=== PATIENT | male | born 1955 | race Caucasian/White ===

== ENCOUNTER 2022-11-29 16:42 | Inpatient (IN) | payer OTHER, SELFPAY ==
--- NOTE | ~2022-11-29 | CT_ITS ---
EXAMINATION: CT HEAD WITHOUT CONTRAST CLINICAL INFORMATION: Altered mental status COMPARISON: None available. TECHNIQUE: Contiguous axial imaging was performed from the skull base to vertex without intravenous administration of contrast. This CT examination was performed using dose optimization techniques as appropriate, variously including the following: *Automated exposure control *Adjustment of mA and/or kV according to patient size (this includes techniques or standardized protocols for targeted exams where dose is matched to indication/reason for exam; i.e. extremities or head) *Use of iterative reconstruction technique Dose: 819 mGy-cm FINDINGS: There is focal hypoattenuation in the left posterior frontal lobe laterally with underlying white matter hypoattenuation and no appreciable focal mass effect swelling, most consistent with and encephalomalacia from a prior infarct. There is involvement of the insular cortex. There is no evidence of acute intracranial hemorrhage. No abnormal mass-effect or midline shift is seen. Clement to white matter differentiation is well preserved. No extra axial fluid collections. The ventricles are normal in size and configuration. Multiple areas of hypoattenuation in the subcortical and periventricular white matter are most consistent with chronic microangiopathic changes. Multiple small lacunar infarcts are evident within the basal ganglia, most notably in the region of the right caudate. Leftward deviation of the nasal septum. Dental caries are partially imaged. No acute osseous findings. The sinuses and mastoid air cells are clear. CT/CT head/brain wo IV con IMPRESSION: Focal encephalomalacia in the left frontal and insular cortices, most consistent with a prior infarct. A superimposed acute infarct in this region cannot excluded. Consider correlation with MRI of the brain for further assessment if clinically indicated.
--- NOTE | ~2022-11-29 | CT_ITS ---
EXAMINATION: CT ANGIOGRAM OF THE CHEST WITH AND WITHOUT CONTRAST (CT PULMONARY ANGIOGRAM FOR PE) CLINICAL INFORMATION: Reason for Exam sob COMPARISON: None available. TECHNIQUE: Prior to contrast administration, noncontrast localization images were obtained. Subsequently, multidetector volumetric imaging was performed from the thoracic inlet to below the diaphragms following the administration of 80 mL Omnipaque 350 intravenous contrast. No contrast reaction reported Sagittal, coronal, and MIP oblique sagittal reformatted images were obtained on the CT workstation, uploaded to PACS, and reviewed. This CT examination was performed using dose optimization techniques as appropriate, variously including the following: *Automated exposure control *Adjustment of mA and/or kV according to patient size (this includes techniques or standardized protocols for targeted exams where dose is matched to indication/reason for exam; i.e. extremities or head) *Use of iterative reconstruction technique Total exam dose-length product 528 mGy-cm FINDINGS: QUALITY OF STUDY/CONTRAST BOLUS: Satisfactory. PULMONARY ARTERIES: No pulmonary emboli. THORACIC AORTA: No aneurysm. LUNG: No focal consolidation, nodules or masses. PLEURA: No pleural effusion or pneumothorax. MEDIASTINUM: Normal heart size. No pericardial effusion. No hilar or mediastinal lymphadenopathy. No evidence of septal bowing or right heart strain. CORONARY ARTERY CALCIFICATION: Mild CHEST WALL/AXILLA: No axillary or internal mammary lymphadenopathy. OSSEOUS STRUCTURES: No acute or suspicious osseous abnormality. Degenerative changes UPPER ABDOMEN: See abdominal and pelvic CT report from the same day. No reflux of contrast into the hepatic veins to suggest elevated right heart pressures. CT/CT angio chest PE protocol IMPRESSION: No evidence of pulmonary embolism. VTE: negative
--- NOTE | ~2022-11-29 | CT_ITS ---
EXAMINATION: CT ABDOMEN AND PELVIS WITH CONTRAST CLINICAL INFORMATION: Diffuse abdominal pain and confusion COMPARISON: None available. TECHNIQUE: Multidetector volumetric images were obtained from the superior aspect of the liver through the pubic symphysis following administration 85 mL of Omnipaque 350 intravenous contrast. Sagittal and coronal reformatted images were obtained on the technologist's workstation. Oral contrast: No This CT examination was performed using dose optimization techniques as appropriate, variously including the following: *Automated exposure control *Adjustment of mA and/or kV according to patient size (this includes techniques or standardized protocols for targeted exams where dose is matched to indication/reason for exam; i.e. extremities or head) *Use of iterative reconstruction technique DLP: 1181 mGy-cm FINDINGS: LUNG BASES: The visualized lung bases are unremarkable. LIVER, GALLBLADDER, AND BILIARY TREE: There are calcifications in the liver. The liver is otherwise normal. The gallbladder is upper normal in size. No biliary duct dilatation. PANCREAS: Unremarkable. SPLEEN: There are calcifications in the spleen. Spleen is normal in size. ADRENAL GLANDS: Unremarkable. KIDNEYS AND URETERS: There is mild bilateral hydronephrosis. There is mild bilateral ureteral dilatation. There is a heterogeneous low-attenuation or decreased enhancement seen in the lower pole of the right kidney. There is question of a tiny amount of perinephric fluid. Appearance is questionable for pyelonephritis. Differential would include an infarct. There is a 1 cm cortical cyst in the lower pole of the right kidney. There is question of a left lower pole peripelvic cyst. No imaging follow-up recommended. BLADDER: There is a Watkins catheter in the bladder. The bladder is empty. The bladder wall appears diffusely thickened. GASTROINTESTINAL TRACT: Diverticulosis of the colon. No evidence of diverticulitis. The small and large bowel are otherwise unremarkable. The appendix is unremarkable. ABDOMINAL WALL: No significant hernia is appreciated. LYMPH NODES: Small retroperitoneal lymph nodes. No enlarged lymph nodes. VASCULAR: Unremarkable. PELVIC VISCERA: Unremarkable. OSSEOUS STRUCTURES: Degenerative changes of the spine. CT/CT abdomen pelvis w IV con IMPRESSION: Watkins catheter in the bladder. The bladder is empty. The bladder wall is diffusely thickened. Mild bilateral hydronephrosis and ureteral dilatation down to the bladder. Heterogeneous decreased enhancement in the lower pole the right kidney and question small amount of adjacent fluid. Appearance is questionable for pyelonephritis. Differential would include infarct. Diverticulosis of the colon. Upper normal-size gallbladder. No gallstone seen. Calcifications in the liver and spleen suggestive of old granulomatous disease. Probable small esophageal hernia. Fleischner guidelines were followed.
[2022-11-29 17:01] VITALS: BP 169/87; PULSE 80; RESP 28; TEMP 36.3; O2SAT 100; BMI 32.5
[2022-11-29 17:08] LABS: Glucose, Whole Blood 129 mg/dL (60-115)
--- NOTE | 2022-11-29 17:09 | ED_ITS ---
HPI - Altered Mental Status General Chief Complaint: Altered Mental Status Stated Complaint: Confusion, UTI Time Seen by Provider: 11/29/22 16:53 Source: patient and EMS Mode of arrival: EMS Limitations: altered mental status History of Present Illness HPI narrative: This is a 67-year-old male presenting to the emergency department via ambulance, unclear medical history, patient was found wandering outside of [address], patient states he is coming from [address] however unclear as to why, he appears confused, is only oriented to person, not place time or situation. According to paperwork that patient brought with him he had an appointment today with Dr. Jason at [address] today at 3:30, it appears as though patient lives in [facility], patient does not know his emergency contact information. He is unable to really answer my questions appropriately. His paperwork he brought with him also shows that he was recently at [facility] in [place] where he was discharged with cefpodoxime for UTI, it also appears as though he was discharged with a diagnosis of pulmonary embolism & urolitheal mass. Patient unable to provide history or review of systems Related Data Allergies Allergy/AdvReac Type Severity Reaction Status Date / Time Unable to Assess Allergy Unverified 11/29/22 16:53 Review of Systems Review of Systems: Yes Unobtainable due to mental status PMFSH Past Medical History Attestation statement: The following information was validated with the patient. Source: old records reviewed and nursing notes reviewed Social History Social History Advance Directives: No Advance Directives Information Provided: No Physical Exam ED Vital Signs: Vital Signs - 24 hr 11/29/22 17:01 11/29/22 20:22 Temperature 97.3 F 98.4 F Pulse Rate 80 73 Respiratory Rate 28 H 18 Blood Pressure 169/87 H 175/78 H Pulse Oximetry 100 100 Oxygen Delivery Method Room Air Room Air BMI result Body Mass Index 32.5 Vital signs stable Appearance: Alert.? Oriented to person not time place or situation.? No acute distress.? Head: Normocephalic, atraumatic, no step-offs or deformities Eyes: Pupils equal, round and reactive to light.? ENT: Pharynx normal.? Neck: Normal inspection.? Neck supple.? CVS: Normal heart rate and rhythm.? Pulses normal.? Respiratory: No respiratory distress.? Breath sounds normal.? Abdomen: Soft and nontender.? Skin: Skin warm and dry.? Normal skin color.? Normal skin turgor.? Extremities: No lower extremity edema.? No calf ttp. 5/5 strength to bilateral upper and lower extremities Neuro: Oriented to person not time place or situation.? No motor deficit.? No sensory deficit. CN 2-12 intact Course Reevaluation(s) Reevaluation #1: He has not been eating well according to brother issues with bowel movements . HX of CVA, confusion, aphasia per brother. 10-11 days ago he was in a hospital unsure as to why, patient also poor historian. Time: 20:33 Reevaluation #2: CBC within normal limits. Chemistry with CHAPIS, patient receiving hydration, patient also noted to have lactic acidosis, fluids were given and lactic acidosis improved now within normal limits 1.5. Lipase normal. Urine with leukocyte esterases however no bacteria, patient on oral antibiotics likely why. Urine tox benign. Ethanol negative. COVID negative. CT with no evidence of PE, as I learned from patient's brother he is anticoagulated and med compliant. CT of the abdomen and pelvis with Watkins catheter in the bladder with diffusely thickened bladder wall, mild bilateral hydronephrosis and dilation of the ureter down to the bladder. Decreased enhancement in the lower pole the right kidney and question small amount of adjacent fluid concerning for pyelonephritis, no CVA tenderness however patient altered and poor historian. Other differentials include infarct which is less likely. I did discuss this CT scan read with my attending who tells me to admit with IV fluids, antibiotics. Ribs head CT showing focal encephalomalacia in the left frontal and insular cortices most consistent with prior infarct. A superimposed acute infarct in this region cannot be excluded per imaging however on exam patient is neuro nonfocal he is following directions, according to brother this is his baseline and he is usually confused. Low suspicion for acute infarct, unclear last known well time therefore patient would not be a candidate for tPA and I do not suspect acute stroke. Time: 22:15 Reevaluation #3: Will admit the hospitalist at this time. Medications Administered Discontinued Medications Generic Name Dose Route Start Last Admin Trade Name Freq PRN Reason Stop Dose Admin Sodium Chloride 1,000 mls @ 999 mls/hr 11/29/22 19:00 11/29/22 20:36 Ns IV 11/29/22 20:00 Infused .Q1H1M SHY Infusion Ceftriaxone Sodium 1 gm/ 50 mls @ 100 mls/hr 11/29/22 18:56 11/29/22 20:36 Sodium Chloride IV 11/29/22 19:25 Infused ONCE ONE Infusion Sodium Chloride 1,000 mls @ 999 mls/hr 11/29/22 20:45 11/29/22 22:10 Ns IV 11/29/22 21:45 Infused .Q1H1M SHY Infusion Iohexol 100 ml 11/29/22 20:22 11/29/22 20:22 Iohexol 350 Mg/Ml 100 Ml Infus..Btl IV 11/29/22 20:23 85 ml ONCE ONE Administration Medical Decision Making Lab Data 11/29/22 17:25 11/29/22 17:25 Labs: Lab Results 11/29/22 11/29/22 11/29/22 Range/Units 17:04 17:25 17:25 WBC 10.8 (4.8-10.8) X10*3/uL RBC 4.59 L (4.60-5.80) X10*6/uL Hgb 14.2 (14.0-18.0) g/dl Hct 42.0 (42.0-52.0) % MCV 91.5 (80.0-98.0) fL MCH 30.9 (27.0-33.0) pg MCHC 33.8 (31.0-36.0) g/dl RDW 13.2 (11.0-16.0) % Plt Count 364 (160-400) X10*3/uL MPV 9.6 (9.4-12.4) fL Immature Gran % (Auto) 0.4 (0.0-0.4) % Neut % (Auto) 70.7 (45-73) % Lymph % (Auto) 20.8 (20-40) % Bartholomew % (Auto) 6.8 (2-11) % Eos % (Auto) 0.7 (0-4) % Baso % (Auto) 0.6 (0-2) % Lymph # (Auto) 2.3 (1.2-4.9) X10*3/uL Bartholomew # (Auto) 0.7 (0.1-1.2) X10*3/uL Eos # (Auto) 0.1 (0.0-0.4) X10*3/uL Baso # (Auto) 0.1 (0.0-0.2) X10*3/uL Abs Immat Gran (auto) 0.04 H (0.00-0.03) X10*3/uL Absolute Neuts (auto) 7.7 (2.0-8.3) x10*3/uL Absolute Nucleated RBC 0.000 (0.0-0.012) X10*3/uL Nucleated RBC % (auto) 0.0 (0.0-0.2) /100WBC Sodium 138 (135-145) mmol/L Potassium 4.2 (3.3-5.1) mmol/L Chloride 105 (96-108) mmol/L Carbon Dioxide 19 L (22-29) mmol/L Anion Gap 18 (12-20) BUN 18 H (9-16) mg/dL Creatinine 1.41 H (0.5-1.4) mg/dL Estim Creat Clear Calc 64.7 Estimated GFR 50 POC Glucose 129 H (60-115) mg/dL Random Glucose 123 H (60-115) mg/dL Lactic Acid (0.5-2.0) mmol/L Lactic Acid F/U @ 2Hr (0.5-2.0) mmol/L Calcium 9.1 (8.4-10.2) mg/dL Magnesium 1.6 (1.6-2.6) mg/dL Total Bilirubin 1.2 H (0.0-1.0) mg/dL AST 14 (5-37) U/L ALT 18 (0-40) U/L Alkaline Phosphatase 112 (39-117) U/L Total Protein 7.1 (6.5-8.0) g/dL Albumin 3.9 (3.5-5.0) g/dL Lipase 14 (8-78) U/L Urine Color Urine Appearance Urine pH (5.0-9.0) Ur Specific [place] (1.005-1.025) Urine Protein (Neg-Trace) mg/dL Urine Glucose (UA) (Negative) mg/dL Urine Ketones (Negative) mg/dL Urine Blood (Negative) Urine Nitrite (Negative) Ur Leukocyte Esterase (Negative) Urine RBC (0-2) /HPF Urine WBC (0-5) /HPF Ur Squamous Epith Cells (0-2) /HPF Urine Bacteria (None Seen) Hyaline Casts (0-2) /LPF Urine Opiates Screen (Not Detect) Urine Fentanyl Screen (Not Detect) Ur Barbiturates Screen (Not Detect) Ur Phencyclidine Scrn (Not Detect) Ur Amphetamines Screen (Not Detect) U Benzodiazepines Scrn (Not Detect) Urine Cocaine Screen (Not Detect) U Marijuana (THC) Screen (Not Detect) Ethyl Alcohol < 10 mg/dL COVID-19 (TAHSA) (Negative) COVID-19 Clin Com 11/29/22 11/29/22 11/29/22 Range/Units 17:25 17:25 17:55 WBC (4.8-10.8) X10*3/uL RBC (4.60-5.80) X10*6/uL Hgb (14.0-18.0) g/dl Hct (42.0-52.0) % MCV (80.0-98.0) fL MCH (27.0-33.0) pg MCHC (31.0-36.0) g/dl RDW (11.0-16.0) % Plt Count (160-400) X10*3/uL MPV (9.4-12.4) fL Immature Gran % (Auto) (0.0-0.4) % Neut % (Auto) (45-73) % Lymph % (Auto) (20-40) % Bartholomew % (Auto) (2-11) % Eos % (Auto) (0-4) % Baso % (Auto) (0-2) % Lymph # (Auto) (1.2-4.9) X10*3/uL Bartholomew # (Auto) (0.1-1.2) X10*3/uL Eos # (Auto) (0.0-0.4) X10*3/uL Baso # (Auto) (0.0-0.2) X10*3/uL Abs Immat Gran (auto) (0.00-0.03) X10*3/uL Absolute Neuts (auto) (2.0-8.3) x10*3/uL Absolute Nucleated RBC (0.0-0.012) X10*3/uL Nucleated RBC % (auto) (0.0-0.2) /100WBC Sodium (135-145) mmol/L Potassium (3.3-5.1) mmol/L Chloride (96-108) mmol/L Carbon Dioxide (22-29) mmol/L Anion Gap (12-20) BUN (9-16) mg/dL Creatinine (0.5-1.4) mg/dL Estim Creat Clear Calc Estimated GFR POC Glucose (60-115) mg/dL Random Glucose (60-115) mg/dL Lactic Acid 3.1 H* (0.5-2.0) mmol/L Lactic Acid F/U @ 2Hr (0.5-2.0) mmol/L Calcium (8.4-10.2) mg/dL Magnesium (1.6-2.6) mg/dL Total Bilirubin (0.0-1.0) mg/dL AST (5-37) U/L ALT (0-40) U/L Alkaline Phosphatase (39-117) U/L Total Protein (6.5-8.0) g/dL Albumin (3.5-5.0) g/dL Lipase (8-78) U/L Urine Color Yellow Urine Appearance Clear Urine pH 7.0 (5.0-9.0) Ur Specific [place] <= 1.005 (1.005-1.025) Urine Protein Negative (Neg-Trace) mg/dL Urine Glucose (UA) Negative (Negative) mg/dL Urine Ketones Negative (Negative) mg/dL Urine Blood Small (1+) H (Negative) Urine Nitrite Negative (Negative) Ur Leukocyte Esterase Moderate (2+) H (Negative) Urine RBC 0-2 (0-2) /HPF Urine WBC 6-10 H (0-5) /HPF Ur Squamous Epith Cells 0-2 (0-2) /HPF Urine Bacteria None Seen (None Seen) Hyaline Casts 0-2 (0-2) /LPF Urine Opiates Screen (Not Detect) Urine Fentanyl Screen (Not Detect) Ur Barbiturates Screen (Not Detect) Ur Phencyclidine Scrn (Not Detect) Ur Amphetamines Screen (Not Detect) U Benzodiazepines Scrn (Not Detect) Urine Cocaine Screen (Not Detect) U Marijuana (THC) Screen (Not Detect) Ethyl Alcohol mg/dL COVID-19 (TASHA) Negative (Negative) COVID-19 Clin Com See Note 11/29/22 11/29/22 Range/Units 17:55 20:43 WBC (4.8-10.8) X10*3/uL RBC (4.60-5.80) X10*6/uL Hgb (14.0-18.0) g/dl Hct (42.0-52.0) % MCV (80.0-98.0) fL MCH (27.0-33.0) pg MCHC (31.0-36.0) g/dl RDW (11.0-16.0) % Plt Count (160-400) X10*3/uL MPV (9.4-12.4) fL Immature Gran % (Auto) (0.0-0.4) % Neut % (Auto) (45-73) % Lymph % (Auto) (20-40) % Bartholomew % (Auto) (2-11) % Eos % (Auto) (0-4) % Baso % (Auto) (0-2) % Lymph # (Auto) (1.2-4.9) X10*3/uL Bartholomew # (Auto) (0.1-1.2) X10*3/uL Eos # (Auto) (0.0-0.4) X10*3/uL Baso # (Auto) (0.0-0.2) X10*3/uL Abs Immat Gran (auto) (0.00-0.03) X10*3/uL Absolute Neuts (auto) (2.0-8.3) x10*3/uL Absolute Nucleated RBC (0.0-0.012) X10*3/uL Nucleated RBC % (auto) (0.0-0.2) /100WBC Sodium (135-145) mmol/L Potassium (3.3-5.1) mmol/L Chloride (96-108) mmol/L Carbon Dioxide (22-29) mmol/L Anion Gap (12-20) BUN (9-16) mg/dL Creatinine (0.5-1.4) mg/dL Estim Creat Clear Calc Estimated GFR POC Glucose (60-115) mg/dL Random Glucose (60-115) mg/dL Lactic Acid (0.5-2.0) mmol/L Lactic Acid F/U @ 2Hr 1.5 (0.5-2.0) mmol/L Calcium (8.4-10.2) mg/dL Magnesium (1.6-2.6) mg/dL Total Bilirubin (0.0-1.0) mg/dL AST (5-37) U/L ALT (0-40) U/L Alkaline Phosphatase (39-117) U/L Total Protein (6.5-8.0) g/dL Albumin (3.5-5.0) g/dL Lipase (8-78) U/L Urine Color Urine Appearance Urine pH (5.0-9.0) Ur Specific [place] (1.005-1.025) Urine Protein (Neg-Trace) mg/dL Urine Glucose (UA) (Negative) mg/dL Urine Ketones (Negative) mg/dL Urine Blood (Negative) Urine Nitrite (Negative) Ur Leukocyte Esterase (Negative) Urine RBC (0-2) /HPF Urine WBC (0-5) /HPF Ur Squamous Epith Cells (0-2) /HPF Urine Bacteria (None Seen) Hyaline Casts (0-2) /LPF Urine Opiates Screen Not Detected (Not Detect) Urine Fentanyl Screen Not Detected (Not Detect) Ur Barbiturates Screen Not Detected (Not Detect) Ur Phencyclidine Scrn Not Detected (Not Detect) Ur Amphetamines Screen Not Detected (Not Detect) U Benzodiazepines Scrn Not Detected (Not Detect) Urine Cocaine Screen Not Detected (Not Detect) U Marijuana (THC) Screen Not Detected (Not Detect) Ethyl Alcohol mg/dL COVID-19 (TASHA) (Negative) COVID-19 Clin Com Critical Care Time Critical Care Time Critical Care Time: Yes Total Critical Care Time: 35 Attestation: I attest to this time spent taking care of the patient, obtaining history, physical, reviewing labs, imaging, speaking to my attending, Discharge Plan Discharge Clinical Impression: Altered mental status, CHAPIS (acute kidney injury), Acidosis, lactic, Hydronephrosis, Cystitis Patient Disposition: Admitted As Inpatient
[2022-11-29 17:33] LABS: MANUAL DIFF FLAG NO
[2022-11-29 17:36] LABS: Basophils Absolute Auto 0.1 X10*3/uL (0.0-0.2); Basophils Percent Auto 0.6 % (0-2); Eosinophils Absolute Auto 0.1 X10*3/uL (0.0-0.4); Eosinophils Percent Auto 0.7 % (0-4); Hemoglobin 14.2 g/dl (14.0-18.0); Imm Gran Abs Auto 0.04 X10*3/uL (0.00-0.03); Imm Gran Pct Auto 0.4 % (0.0-0.4); Lymphocytes Absolute Auto 2.3 X10*3/uL (1.2-4.9); Lymphocytes Percent Auto 20.8 % (20-40); Mean Corpuscular HGB Conc 33.8 g/dl (31.0-36.0); Mean Corpuscular Hemoglobin 30.9 pg (27.0-33.0); Mean Corpuscular Volume 91.5 fL (80.0-98.0); Mean Platelet Volume 9.6 fL (9.4-12.4); Monocytes Absolute Auto 0.7 X10*3/uL (0.1-1.2); Monocytes Percent Auto 6.8 % (2-11); Neutrophils Absolute Auto 7.7 x10*3/uL (2.0-8.3); Neutrophils Percent Auto 70.7 % (45-73); Platelet Count 364 X10*3/uL (160-400); Red Blood Count 4.59 X10*6/uL (4.60-5.80); Red Cell Distribution Width 13.2 % (11.0-16.0); White Blood Count 10.8 X10*3/uL (4.8-10.8)
--- NOTE | 2022-11-29 17:53 | PC.NURSE ---
Pt altered, trying to get out of bed. Unable to say where he is or the year, confused as to what he is even doing here at this time. Attempting to call contact from paper documentation
[2022-11-29 18:07] LABS: Appearance Urine Clear; Color Urine Yellow; Glucose Urine UA Negative (Negative); Leukocyte Esterase Urine Moderate (2+) (Negative); Nitrite Urine Negative (Negative); Specific Gravity - Urine <= 1.005 (1.005-1.025); UMIC TRIGGER UACC YES; Urine Blood Small (1+) (Negative); Urine Ketones Negative (Negative); Urine Protein Negative (Neg-Trace)
[2022-11-29 18:14] LABS: Amphetamine Screen Urine Not Detected (Not Detect); Barbiturates, Urine Not Detected (Not Detect); Benzodiazepines Screen Urine Not Detected (Not Detect); Cannabinoid Screen Urine Not Detected (Not Detect); Cocaine Screen Urine Not Detected (Not Detect); Fentanyl, urine Not Detected (Not Detect); Opiate Screen Urine Not Detected (Not Detect); Phencyclidine Screen Urine Not Detected (Not Detect)
[2022-11-29 18:20] LABS: COVID-19 Test Negative (Negative); IDNOW Serial# 08D9AD1C
[2022-11-29 18:21] LABS: Bacteria Urine None Seen (None Seen); Hyaline Casts Urine 0-2 /LPF (0-2); RBC Urine 0-2 /HPF (0-2); Squamous Epithelial Cell Urine 0-2 /HPF (0-2); UACC Culture Trigger YES
[2022-11-29 18:57] LABS: Lactic Acid 3.1 mmol/L (0.5-2.0)
[2022-11-29 19:26] LABS: Alanine Aminotransferase 18 U/L (0-40); Albumin Level 3.9 g/dL (3.5-5.0); Alkaline Phosphatase 112 U/L (39-117); Anion Gap 18 (12-20); Aspartate Amino Transferase 14 U/L (5-37); Bilirubin Total 1.2 mg/dL (0.0-1.0); Blood Urea Nitrogen 18 mg/dL (9-16); Calcium 9.1 mg/dL (8.4-10.2); Carbon Dioxide 19 mmol/L (22-29); Chloride 105 mmol/L (96-108); Creatinine Clr Calc Pharmacy 64.7; Estimated Glomerular Filt Rate 50; Ethanol < 10 mg/dL; Glucose Random 123 mg/dL (60-115); Lipase 14 U/L (8-78); Magnesium 1.6 mg/dL (1.6-2.6); Potassium 4.2 mmol/L (3.3-5.1); Sodium 138 mmol/L (135-145); Total Protein 7.1 g/dL (6.5-8.0)
[2022-11-29] MEDS: cefTRIAXone sodium 1 GM in 0.9 % Sodium Chloride 50 ML IV (19:28)
[2022-11-29] MEDS: 0.9 % Sodium Chloride 1,000 ML 999 ML IV ×2 (19:29→20:52)
[2022-11-29 19:31] LABS: Reflex Lactate? Lactic Acid Added
--- OUTSIDE RECORDS SUMMARY | 2022-11-29 19:41 | XMS_ITS | Continuity of Care Document ---
Author Name [facility] Address [address] [place] [address]- Care Team Providers Care Life Teacher Name Role Phone Yaya Messina MD Primary Care Physician Encounter [facility] NBR [id number] Date(s): 05/21/21 [facility] [address] [place] [id number] [place] Allergies, Adverse Reactions, Alerts Substance Reaction Severity Status lisinopril facial swelling Active Neosporin swelling Active Immunizations Given and Recorded Vaccine Date Status Refusal Reason influenza virus vaccine, inactivated 07/27/16 Give n influenza virus vaccine, inactivated 09/19/13 Alfredo rded tetanus/diphtheria/pertussis, acel(Tdap) 09/19/13 Recorded Pneumococcal Vaccine (oldterm) 05/28/09 Recorded Medications amLODIPine 10 mg oral tablet 10 mg, 1, tablet, By Mouth, Daily, # 30 tablet, Refills 6, Tot. Refills 6, Maintenance, 09/29/16 16:15:05, Route to Pharmacy Electronically, [id number], [facility]/pharmacy #[id number] Start Date: 09/29/16 Status: Ordered aspirin 81 mg oral tablet CHEW AND SWALLOW 1 TABLET DAILY., 01/11/13 15:51:00 Start Date: 01/11/13 Status: Ordered Diovan HCT 12.5 mg-320 mg oral tablet 1 tablet, By Mouth, Daily, # 30 tablet, 6 Refills, Maintenance, 09/29/16 16:14:59, 1 tablet By Mouth Daily Start Date: 09/29/16 Status: Ordered Insulin Syringe, BD Ultra-Fine 0.5 cc 31 G x 8 mm (5/16in) INJECTS 4 TIMES PER DAY, 01/30/14 5:00:00 Start Date: 01/30/14 Status: Ordered Insulin Syringe, BD Ultra-Fine 0.5 cc 31 G x 8 mm (5/16in) See Instructions, # 60 each, Refills 11, Tot. Refills 11, Maintenance, injects insulin 2 times daily, 07/16/15 7:56:00, Compound Start Date: 07/16/15 Status: Ordered Motrin IB = 200 mg, By Mouth, 0 Refills, Maintenance, 04/19/16 11:13:47 Start Date: 04/19/16 Status: Ordered Novolin 70/30 human recombinant subcutaneous injection See Instructions, Inject 30 units before breakfast and 60 units before supper, # 20 mL, 5 Refills, Maintenance, 07/15/15 16:03:51, Injection, Inject 30 units before breakfast and 60 units before supper Start Date: 07/15/15 Status: Ordered One Touch Ultra Test Strips See Instructions, # 200 each, Refills 11, Tot. Refills 11, Maintenance, CHECK BLOOD SUGARS 6 TIMES DAILY. DM 2/ E 11.65/IDDM, 07/08/16 11:31:00, Compound Start Date: 07/08/16 Status: Ordered One Touch Ultra Test Strips See Instructions, # 100 each, Refills 11, Tot. Refills 11, Maintenance, checks blood sugar 3 times daily DM2/E11.65 On insulin, 07/15/15 16:23:00, Compound Start Date: 07/15/15 Status: Ordered Pravachol 40 mg oral tablet 1 tablet = 40 mg, By Mouth, Daily at bedtime, # 30 tablet, 6 Refills, Maintenance, 04/22/16 18:05:00 Start Date: 04/22/16 Status: Ordered Silvadene 1% cream 1 application, Topically, Daily, # 50 Gm, 5 Refills, Maintenance, 08/10/16 8:55:19, Cream, 1 application Topically Daily Start Date: 08/10/16 Status: Ordered Problem List Condition Effective Dates Status Health Status Inform ant Anxiety(Confirmed) Active Depression(Confirmed) Active Diabetes mellitus(Confirmed) Active Hyperlipidemia(Confirmed) Active Hypertension(Confirmed) Active Hypokalemia(Confirmed) Active Right knee pain(Confirmed) Active Obesity(Confirmed) Active Osteoarthritis(Confirmed) Active Encounter for preventive [facility] examination(Confirmed) Active Social History Social History Type Response Smoking Status Former smoker; Type: Cigarettes; Stopped at age: 22; Started at age: 18; entered on: 06/02/15 Sex
--- OUTSIDE RECORDS SUMMARY | 2022-11-29 19:41 | XMS_ITS | Continuity of Care Document ---
Author Name Unknown Organization [facility] Address [address] [place] [id number]- Care Team Providers Care Paper Novelty Maker Name Role Phone Not on Staff, PCP Primary Care Physician Unavail able Encounter [facility] Date(s): 05/13/21 - 05/22/[address] [id number] Discharge Disposition: A-D/C Home Attending Physician: Yury Ortiz MD, Cash Posey Admitting Physician: Gino Nathan MD Referring Physician: Not on Staff, Referring MD Allergies, Adverse Reactions, Alerts Substance Reaction Severity Status NKA Active Immunizations Given and Recorded Vaccine Date Status Refusal Reason SARS-CoV-2 (COVID-19) Ad26 vaccine 12/16/20 Record ed Medications aspirin 81 mg oral delayed release tablet 81 mg, By Mouth, Daily, # 30 tablet, Refills 0, Tot. Refills 0, Maintenance, 05/20/21 17:33:00 EDT,Route to Pharmacy Electronically, [facility], Partial fill upon patient request if the prescription is for a schedule II opioid drug., 17... Start Date: 05/20/21 Stop Date: 06/19/21 Status: Ordered atorvastatin 80 mg oral tablet 1 tablet = 80 mg, By Mouth, Daily at bedtime, # 30 tablet, 0 Refills, Maintenance, 05/20/21 17:27:00 EDT, Tablet, [facility], Partial fill upon patient request if the prescription is for a schedule II opioid drug., 178, cm, 05/20/21 15:3... Start Date: 05/20/21 Status: Ordered Basaglar KwikPen 100 units/mL subcutaneous solution = 20 units, Subcutaneous Injection, Daily at bedtime, # 10 mL, 0 Refills, Maintenance, 05/22/21 10:40:00 EDT, Solution, [facility], Partial fill upon patient request if the prescriptionis for a schedule II opioid drug., 178, cm, ... Start Date: 05/22/21 Status: Ordered metFORMIN 500 mg oral tablet 1 tablet = 500 mg, By Mouth, 2 times a day, # 60 tablet, 0 Refills, Maintenance, 05/22/21 10:28:00 EDT, Tablet, [facility], Partial fill upon patient request if the prescription is for a schedule II opioid drug., 178, cm, 05/22/21 8:16:0... Start Date: 05/22/21 Status: Ordered metoprolol 100 mg oral tablet, extended release 100 mg, XL Tablet, By Mouth, 05/22/21 9:00:00 EDT Start Date: 05/22/21 Stop Date: 05/22/21 Status: Completed metoprolol 100 mg oral tablet, extended release 100 mg, 1, tablet, By Mouth, Daily, # 30 tablet, Refills 0, Tot. Refills 0, Maintenance, 05/20/21 17:27:00 EDT, Route to Pharmacy Electronically, [facility], Partial fill upon patient request if the prescription is for a schedule II opio... Start Date: 05/20/21 Status: Ordered Pen [place], 32 G x 4 mm BD Ultra Fine III See instructions, # 600 each, Refills 5, Tot. Refills 5, Maintenance, use as directed for Type 1 Diabetes Mellitus, 05/22/21 10:44:00 EDT, Supply, 178, cm, 05/22/21 8:16:00 EDT, Height, 119.4, kg, 05/15/21 4:44:00 EDT, Dry Weight Start Date: 05/22/21 Stop Date: 11/13/22 Status: Ordered spironolactone 25 mg oral tablet 25 mg, 1, tablet, By Mouth, Daily, # 30 tablet, Refills 0, Tot. Refills 0, Maintenance, 05/20/21 17:27:00 EDT, Route to Pharmacy Electronically, [facility], Partial fill upon patient request if the prescription is for a schedule II opioi... Start Date: 05/20/21 Status: Ordered valsartan 40 mg oral tablet 40 mg, Tablet, By Mouth, 05/22/21 9:00:00 EDT Start Date: 05/22/21 Stop Date: 05/22/21 Status: Completed valsartan 40 mg oral tablet 40 mg, 1, tablet, By Mouth, Daily, # 30 tablet, Refills 0, Tot. Refills 0, Maintenance, 05/20/21 17:27:00 EDT, Route to Pharmacy Electronically, [facility], Partial fill upon patient request if the prescription is for a schedule II opioi... Start Date: 05/20/21 Status: Ordered Problem List Condition Effective Dates Status Health Status Inform ant Coronary artery disease(Confirmed) Active Hyperlipidemia(Confirmed) Active Hypertension(Confirmed) Active Type 2 diabetes mellitus(Confirmed) Active Results Radiology Reports * Exam Date Time Procedure Performing Provider Status 05/13/21 2:57 PM Chest Portable Penny Alexandra; Auth (Verified) Notes: (Chest Portable) Reason For Exam: Stroke, CQ CHF, Pneumonia;Other: RESULT: Chest Portable Chest Portable Reason: Other:; Stroke, CQ CHF, Pneumonia; Clinical Question(s): Pneumonia COMPARISON: None. FINDINGS: LINES AND TUBES: None. LUNGS AND PLEURA: Clear lungs. Normal pulmonary vascularity. No pleural effusion. No pneumothorax. HEART, MEDIASTINUM AND KATHERINE: Central vascular prominence and prominence of the cardiac silhouette. BONES AND SOFT TISSUES: No acute abnormality. IMPRESSION: Central vascular engorgement without overt pulmonary edema. WSN: [id number] Ordering Physician: Piyush Mcgee Dictated By: Pedro Garcia MD Dictated Date/Time: 05/13/21 3:01 pm Reviewed By: Pedro Garcia MD Signed By: Pedro Garcia MD Signed Date/Time: 05/13/21 3:01 pm Transcribed By: CHERY Transcribed Date/Time: 05/13/21 3:00 pm Vital Signs Most recent to oldest [Reference Range]: 1 2 3 4 Height 178 cm (05/22/21 11:18 AM) 178 cm (05/22/21 8:16 AM) 178 cm (05/21/21 11:54 PM) Weight 119.4 kg (05/14/21 9:41 PM) 119.4 kg (05/14/21 6:29 PM) Oxygen Saturation [94-100 %] 100 % (05/22/21 11:18 AM) 99 % (05/22/21 8:16 AM) 99 % (05/21/21 11:54 PM) Pulse Rate [55-90 bpm] 60 bpm (05/22/21 11:18 AM) 60 bpm (05/22/21 8:16 AM) 60 bpm (05/22/21 8:11 AM) Body Mass Index [18.5-24.99] 37.68 *>HHI* (05/14/21 9:41 PM) Blood Pressure [90-138/55-84 mm Hg] 126/72mm Hg (05/22/21 11:18 AM) 128/72mm Hg (05/22/21 8:16 AM) 128/72mm Hg (05/22/21 8:11 AM) 128/72mm Hg (05/22/21 8:11 AM) Respiratory Rate [16-30 br/min] 20 br/min (05/22/21 11:18 AM) 20 br/min (05/22/21 8:16 AM) 16 br/min (05/21/21 11:54 PM) Temperature [96.8-100.4 DegF] 97.5 DegF (05/22/21 11:18 AM) 97.7 DegF (05/22/21 8:16 AM) 97.9 DegF (05/21/21 11:54 PM) Liters per Minute 0 L/min (05/21/21 8:21 AM) 0 L/min (05/19/21 4:00 PM) 0 L/min (05/19/21 11:00 AM) Mode of Delivery (Oxygen) Room air (05/22/21 11:18 AM) Room air (05/22/21 8:16 AM) Room air (05/21/21 11:54 PM) Blood pressure sites Arm, left (05/22/21 11:18 AM) Arm, left (05/22/21 8:16 AM) Arm, left (05/21/21 11:54 PM) Temperature Route Temporal (05/22/21 11:18 AM) Temporal (05/22/21 8:16 AM) Temporal (05/21/21 11:54 PM) Dry Weight 119.4 kg (05/14/21 9:41 PM) Weight Obtained Via Bed scale (05/14/21 6:29 PM)
--- OUTSIDE RECORDS SUMMARY | 2022-11-29 19:41 | XMS_ITS | Continuity of Care Document ---
Author Name Unknown Organization [facility] Address [address] [address]- Care Team Providers Care Bumboater Name Role Phone Yaya Messina MD Primary Care Physician [place] [facility] 06[place]04[place]21 - 07/04/21 [facility] [address] [address]- Attending Physician: Admtr, Ar8 Admitting Physician: Admtr, Ar8 Referring Physician: Admtr, Ar8 Allergies, Adverse Reactions, Alerts Substance Reaction Severity Status lisinopril facial swelling Active Neosporin swelling Active Immunizations Given and Recorded Vaccine Date Status Refusal Reason SARS-CoV-2 (COVID-19) Ad26 vaccine 12/16/20 Record ed influenza virus vaccine, inactivated 07/27/16 Give n influenza virus vaccine, inactivated 09/19/13 Alfredo rded tetanus/diphtheria/pertussis, acel(Tdap) 09/19/13 Recorded Pneumococcal Vaccine (oldterm) 05/28/09 Recorded Medications amLODIPine 10 mg oral tablet 10 mg, 1, tablet, By Mouth, Daily, # 30 tablet, Refills 6, Tot. Refills 6, Maintenance, 09/29/16 16:15:05, Route to Pharmacy Electronically, [id number], [facility]/pharmacy #[id number] Start Date: 09/29/16 Status: Ordered aspirin 81 mg oral delayed release tablet 81 mg, By Mouth, Daily, # 30 tablet, Refills 0, Tot. Refills 0, Maintenance, 05/20/21 17:33:00 EDT,Route to Pharmacy Electronically, [facility], Partial fill upon patient request if the prescription is for a schedule II opioid drug., 17... Start Date: 05/20/21 Stop Date: 06/19/21 Status: Ordered aspirin 81 mg oral tablet CHEW AND SWALLOW 1 TABLET DAILY., 01/11/13 15:51:00 Start Date: 01/11/13 Status: Ordered atorvastatin 80 mg oral tablet 1 tablet = 80 mg, By Mouth, Daily at bedtime, # 30 tablet, 0 Refills, Maintenance, 05/20/21 17:27:00 EDT, Tablet, [facility], Partial fill upon patient request if the prescription is for a schedule II opioid drug., 178, cm, 05/20/21 15:3... Start Date: 05/20/21 Status: Ordered Basaglar KwikPen 100 units/mL subcutaneous solution = 20 units, Subcutaneous Injection, Daily at bedtime, # 10 mL, 0 Refills, Maintenance, 05/22/21 10:40:00 EDT, Solution, [facility], Partial fill upon patient request if the prescriptionis for a schedule II opioid drug., 178, cm, ... Start Date: 05/22/21 Status: Ordered Diovan HCT 12.5 mg-320 mg [...] 7:56:00, Compound Start Date: 07/16/15 Status: Ordered metFORMIN 500 mg oral tablet 1 tablet = 500 mg, By Mouth, 2 times a day, # 60 tablet, 0 Refills, Maintenance, 05/22/21 10:28:00 EDT, Tablet, [facility], Partial fill upon patient request if the prescription is for a schedule II opioid drug., 178, cm, 05/22/21 8:16:0... Start Date: 05/22/21 Status: Ordered metoprolol 100 mg oral tablet, extended release 100 mg, 1, tablet, By Mouth, Daily, # 30 tablet, Refills 0, Tot. Refills 0, Maintenance, 05/20/21 17:27:00 EDT, Route to Pharmacy Electronically, [facility], Partial fill upon patient request if the prescription is for a schedule II opio... Start Date: 05/20/21 Status: Ordered Motrin IB = 200 mg, [...] 16:23:00, Compound Start Date: 07/15/15 Status: Ordered Pen [place], 32 G x 4 mm BD Ultra Fine III See instructions, # 600 each, Refills 5, Tot. Refills 5, Maintenance, use as directed for Type 1 Diabetes Mellitus, 05/22/21 10:44:00 EDT, Supply, 178, cm, 05/22/21 8:16:00 EDT, Height, 119.4, kg, 05/15/21 4:44:00 EDT, Dry Weight Start Date: 05/22/21 Stop Date: 11/13/22 Status: Ordered Pravachol 40 mg oral tablet 1 tablet = 40 mg, By Mouth, Daily at bedtime, # 30 tablet, 6 Refills, Maintenance, 04/22/16 18:05:00 Start Date: 04/22/16 Status: Ordered Silvadene 1% cream 1 application, Topically, Daily, # 50 Gm, 5 Refills, Maintenance, 08/10/16 8:55:19, Cream, 1 application Topically Daily Start Date: 08/10/16 Status: Ordered spironolactone 25 mg oral tablet 25 mg, 1, tablet, By Mouth, Daily, # 30 tablet, Refills 0, Tot. Refills 0, Maintenance, 05/20/21 17:27:00 EDT, Route to Pharmacy Electronically, [facility], Partial fill upon patient request if the prescription is for a schedule II opioi... Start Date: 05/20/21 Status: Ordered valsartan 40 mg oral tablet 40 mg, 1, tablet, By Mouth, Daily, # 30 tablet, Refills 0, Tot. Refills 0, Maintenance, 05/20/21 17:27:00 EDT, Route to Pharmacy Electronically, [facility], Partial fill upon patient request if the prescription is for a schedule II opioi... Start Date: 05/20/21 Status: Ordered Problem List Condition Effective Dates Status Health Status Inform ant Anxiety(Confirmed) Active Coronary artery disease(Confirmed) Active Depression(Confirmed) Active Diabetes mellitus(Confirmed) Active Hyperlipidemia(Confirmed) Active Hyperlipidemia(Confirmed) Active Hypertension(Confirmed) Active Hypertension(Confirmed) Active Hypokalemia(Confirmed) Active Right knee pain(Confirmed) Active Obesity(Confirmed) Active Osteoarthritis(Confirmed) Active Encounter for preventive [facility] examination(Confirmed) Active Type 2 diabetes mellitus(Confirmed) Active Social History Social History Type Response Smoking Status Former smoker; Type: Cigarettes; Stopped at age: 22; Started at age: 18; entered on: 06/02/15 Sex
--- OUTSIDE RECORDS SUMMARY | 2022-11-29 19:41 | XMS_ITS | Continuity of Care Document ---
Author Name Unknown Organization [facility] [place] Address [address] [place] [address]- Care Team Providers Care Whale Trainer Name Role Phone Parul Rucker MD Primary Care Physician Encounter [facility] Date(s): 07/27/19 - 08/06/19 [facility] [address] [address] [facility] Attending Physician: Morena Zhang Admitting Physician: AdmMorena vines Referring Physician: AdmtrMorena Allergies, Adverse Reactions, Alerts Substance Reaction Severity [...] Maintenance, 09/29/16 16:15:05, Route to Pharmacy Electronically, [id number], [facility]/pharmacy #[id number] Start Date: 09/29/16 Status: Ordered aspirin [...] Topically Daily Start Date: 08/10/16 Status: Ordered Trulicity Pen 1.5 mg/0.5 mL subcutaneous solution = 1.5 mg, Subcutaneous Injection, Every week, # 4 each, 6 Refills, Maintenance, 07/25/19 16:47:00 EST, Solution, [facility], 177.8, cm, 05/30/19 16:11:00 EDT, Height, 109.09, kg, 09/15/17 14:30:00 EST, Dry Weight Start Date: 07/25/19 Stop Date: 02/20/20 Status: Ordered Problem List Condition Effective Dates Status Health Status Inform ant Anxiety(Confirmed) Active Depression(Confirmed) Active Diabetes mellitus(Confirmed) Active Hyperlipidemia(Confirmed) Active Hypertension(Confirmed) Active Hypokalemia(Confirmed) Active Right knee pain(Confirmed) Active Obesity(Confirmed) Active Osteoarthritis(Confirmed) Active Encounter for preventive [facility] examination(Confirmed) Active Social History Social History Type Response Smoking Status Former smoker; Type: Cigarettes; Stopped at age: 22; Started at age: 18; entered on: 06/02/15 Sex
--- OUTSIDE RECORDS SUMMARY | 2022-11-29 19:41 | XMS_ITS | Continuity of Care Document ---
Author Name Unknown Organization [facility] Address [address] [place] [address]- Care Team Providers Care Slab Depiler Operator Name Role Phone Parul Rucker MD Primary Care Physician Encounter [facility] Date(s): 12/03/20 - 04/02/21 [facility] [address] [place] [address]- Attending Physician: Ady Barron MD Referring Physician: Parul Rucker MD Allergies, Adverse Reactions, Alerts Substance Reaction [...] Maintenance, 09/29/16 16:15:05, Route to Pharmacy Electronically, [id number], [facility]/pharmacy #[id number] Start Date: 09/29/16 Status: Ordered [...] 0.5 cc 31 G x 8 mm (12/21in) INJECTS 4 TIMES PER DAY, 01/30/14 5:00:00 [...] Active Encounter for preventive [facility] examination(Confirmed) Active Social History Social History Type Response Smoking Status Former smoker; Type: Cigarettes; Stopped at age: 22; Started at age: 18; entered on: 06/02/15 Sex
--- OUTSIDE RECORDS SUMMARY | 2022-11-29 19:41 | XMS_ITS | Continuity of Care Document ---
Author Name Unknown Organization [facility] Address [address] [address]- Care Team Providers Care Card Grader Name Role Phone Yaya Messina MD Primary Care Physician [place] [facility] [place] 07/04/21 [facility] [address] [address]- Attending Physician: Abbe Whitt MD Admitting Physician: Abbe Whitt MD Referring Physician: Abbe Whitt MD Allergies, Adverse Reactions, Alerts Substance Reaction [...] Maintenance, 09/29/16 16:15:05, Route to Pharmacy Electronically, [id number], [facility]/pharmacy #[id number] Start Date: 09/29/16 Status: Ordered aspirin 81 mg oral delayed release tablet 81 mg, By Mouth, Daily, # 30 tablet, Refills 0, Tot. Refills 0, Maintenance, 05/20/21 17:33:00 EDT,Route to Pharmacy Electronically, [facility], Partial fill upon patient request if [...] 0 Refills, Maintenance, 05/20/21 17:27:00 EDT, Tablet, [facility], Partial fill upon patient request if the prescription is for a schedule II opioid drug., 178, cm, 05/20/21 15:3... Start Date: 05/20/21 Status: Ordered Basaglar KwikPen 100 units/mL subcutaneous solution = 20 units, Subcutaneous Injection, Daily at bedtime, # 10 mL, 0 Refills, Maintenance, 05/22/21 10:40:00 EDT, Solution, [facility], Partial fill upon patient [...] 0 Refills, Maintenance, 05/22/21 10:28:00 EDT, Tablet, [facility], Partial fill upon patient request if the prescription is for a schedule II opioid drug., 178, cm, 05/22/21 8:16:0... Start Date: 05/22/21 Status: Ordered metoprolol 100 mg oral tablet, extended release 100 mg, 1, tablet, By Mouth, Daily, # 30 tablet, Refills 0, Tot. Refills 0, Maintenance, 05/20/21 17:27:00 EDT, Route to Pharmacy Electronically, [facility], Partial fill upon patient [...] Compound Start Date: 07/15/15 Status: Ordered Pen [place], 32 G x 4 mm BD Ultra [...] 05/20/21 17:27:00 EDT, Route to Pharmacy Electronically, [facility], Partial fill upon patient request if the prescription is for a schedule II opioi... Start Date: 05/20/21 Status: Ordered valsartan 40 mg oral tablet 40 mg, 1, tablet, By Mouth, Daily, # 30 tablet, Refills 0, Tot. Refills 0, Maintenance, 05/20/21 17:27:00 EDT, Route to Pharmacy Electronically, [facility], Partial fill upon patient request if the prescription is for a schedule II opioi... Start Date: 05/20/21 Status: Ordered Problem List Condition Effective Dates Status Health Status Inform ant Anxiety(Confirmed) Active Coronary artery disease(Confirmed) Active Depression(Confirmed) Active Diabetes mellitus(Confirmed) Active Hyperlipidemia(Confirmed) Active Hyperlipidemia(Confirmed) Active Hypertension(Confirmed) Active Hypertension(Confirmed) Active Hypokalemia(Confirmed) Active Right knee pain(Confirmed) Active Obesity(Confirmed) Active Osteoarthritis(Confirmed) Active Encounter for preventive [facility] examination(Confirmed) Active Type 2 diabetes mellitus(Confirmed) Active Social History Social History Type Response Smoking Status Former smoker; Type: Cigarettes; Stopped at age: 22; Started at age: 18; entered on: 06/02/15 Sex
--- OUTSIDE RECORDS SUMMARY | 2022-11-29 19:41 | XMS_ITS | Continuity of Care Document ---
Author Name Unknown Organization [facility] Address [address] [place] [address]- Care Team Providers Care Denial Resolution Specialist Name Role Phone Yaya Messina MD Primary Care Physician Encounter [facility] [id number] Date(s): 06/04/21 - 06/11/21 [facility] [address] [place] [address]- Attending Physician: Yaya Messina MD Allergies, Adverse Reactions, Alerts Substance Reaction [...] Maintenance, 09/29/16 16:15:05, Route to Pharmacy Electronically, [id number], [facility]/pharmacy #[id number] Start Date: 09/29/16 Status: Ordered [...] cc 31 G x 8 mm (12/21in) See Instructions, # 60 each, Refills 11, [...] Obesity(Confirmed) Active Osteoarthritis(Confirmed) Active Encounter for preventive [facility] examination(Confirmed) Active Social History Social History Type Response Smoking Status Former smoker; Type: Cigarettes; Stopped at age: 22; Started at age: 18; entered on: 06/02/15 Sex
--- OUTSIDE RECORDS SUMMARY | 2022-11-29 19:41 | XMS_ITS | Continuity of Care Document ---
Author Name Unknown Organization [facility] Address [address] [place] [address]- Care Team Providers Care Accountant Cost Name Role Phone Yaya Messina MD Primary Care Physician Encounter [facility] [id number] Date(s): 06/23/21 - 07/23/21 [facility] [address] [place] [phone] [place] Allergies, Adverse Reactions, Alerts Substance Reaction [...] Maintenance, 09/29/16 16:15:05, Route to Pharmacy Electronically, [id number], [facility]/pharmacy #[id number] Start Date: 09/29/16 Status: Ordered aspirin 81 mg oral delayed release tablet 81 mg, By Mouth, Daily, # 30 tablet, Refills 0, Tot. Refills 0, Maintenance, 05/20/21 17:33:00 EDT,Route to Pharmacy Electronically, [facility], Partial fill upon patient [...] 0 Refills, Maintenance, 05/20/21 17:27:00 EDT, Tablet, [facility], Partial fill upon patient request if the prescription is for a schedule II opioid drug., 178, cm, 05/20/21 15:3... Start Date: 05/20/21 Status: Ordered Basaglar KwikPen 100 units/mL subcutaneous solution = 20 units, Subcutaneous Injection, Daily at bedtime, # 10 mL, 0 Refills, Maintenance, 05/22/21 10:40:00 EDT, Solution, [facility], Partial fill upon patient request if [...] 0 Refills, Maintenance, 05/22/21 10:28:00 EDT, Tablet, [facility], Partial fill upon patient request if the prescription is for a schedule II opioid drug., 178, cm, 05/22/21 8:16:0... Start Date: 05/22/21 Status: Ordered metoprolol 100 mg oral tablet, extended release 100 mg, 1, tablet, By Mouth, Daily, # 30 tablet, Refills 0, Tot. Refills 0, Maintenance, 05/20/21 17:27:00 EDT, Route to Pharmacy Electronically, [facility], Partial fill upon patient [...] Compound Start Date: 07/15/15 Status: Ordered Pen [place], 32 G x 4 mm BD Ultra [...] 05/20/21 17:27:00 EDT, Route to Pharmacy Electronically, [facility], Partial fill upon patient request if the prescription is for a schedule II opioi... Start Date: 05/20/21 Status: Ordered valsartan 40 mg oral tablet 40 mg, 1, tablet, By Mouth, Daily, # 30 tablet, Refills 0, Tot. Refills 0, Maintenance, 05/20/21 17:27:00 EDT, Route to Pharmacy Electronically, [facility], Partial fill upon patient [...] Osteoarthritis(Confirmed) Active Encounter for preventive [facility] examination(Confirmed) Active Type 2 diabetes mellitus(Confirmed) Active Social History Social History Type Response Smoking Status Former smoker; Type: Cigarettes; Stopped at age: 22; Started at age: 18; entered on: 06/02/15 Sex
--- OUTSIDE RECORDS SUMMARY | 2022-11-29 19:41 | XMS_ITS | Continuity of Care Document ---
Author Name Unknown Organization [facility] Address [address] [place] [address]- Care Team Providers Care Washing And Screening Plant Supervisor Name Role Phone Yaya Messina MD Primary Care Physician Encounter [facility] [id number] Date(s): 07/24/21 - 08/23/21 [facility] [address] [place] [address] Allergies, Adverse Reactions, Alerts Substance Reaction [...] Maintenance, 09/29/16 16:15:05, Route to Pharmacy Electronically, [id number], [facility]/pharmacy #[id number] Start Date: 09/29/16 Status: Ordered aspirin 81 mg oral delayed release tablet 81 mg, By Mouth, Daily, # 90 tablet, Refills 0, Tot. Refills 0, Maintenance, 07/24/21 15:27:00 EST,Route to Pharmacy Electronically, [facility], Partial fill upon patient request if the prescription is for a schedule II opioid drug., 178,... Start Date: 07/24/21 Stop Date: 08/23/21 Status: Ordered atorvastatin 80 mg oral tablet 1 tablet = 80 mg, By Mouth, Daily at bedtime, # 90 tablet, 0 Refills, Maintenance, 07/24/21 15:26:00 EST, Tablet, [facility], Partial fill upon patient request if the prescription is for aschedule II opioid drug., 178kevin, 07/23/21 9:17:00... Start Date: 07/24/21 Status: Ordered Basaglar KwikPen 100 units/mL subcutaneous solution = 20 units, Subcutaneous Injection, Daily at bedtime, # 10 mL, 0 Refills, Maintenance, 07/24/21 15:26:00 EST, Solution, [facility], Partial fill upon patient request if the prescription isfor a schedule II opioid drug., 178kevin, 07/23/21 9... Start Date: 07/24/21 Status: Ordered Diovan HCT 12.5 mg-320 mg [...] 0 Refills, Maintenance, 05/22/21 10:28:00 EDT, Tablet, [facility], Partial fill upon patient request if the prescription is for a schedule II opioid drug., 178, kevin, 05/22/21 8:16:0... Start Date: 05/22/21 Status: Ordered metoprolol 100 mg oral tablet, extended release 100 mg, 1, tablet, By Mouth, Daily, # 30 tablet, Refills 0, Tot. Refills 0, Maintenance, 07/24/21 15:24:00 EST, Route to Pharmacy Electronically, [facility], Partial fill upon patient request if the prescription is for a schedule II opioid... Start Date: 07/24/21 Status: Ordered Novolin 70/30 human recombinant subcutaneous injection See Instructions, Inject 30 units before breakfast and 60 units before supper, # 20 mL, 5 Refills, Maintenance, 07/15/15 16:03:51, Injection, Inject 30 units before breakfast and 60 units before supper Start Date: 07/15/15 Status: Ordered Pen [place], 32 G x 4 mm BD Ultra Fine III See instructions, # 600 each, Refills 5, Tot. Refills 5, Maintenance, use as directed for Type 1 Diabetes Mellitus, 05/22/21 10:44:00 EDT, Supply, 178, cm, 05/22/21 8:16:00 EDT, Height, 119.4, kg, 05/15/21 4:44:00 EDT, Dry Weight Start Date: 05/22/21 Stop Date: 11/13/22 Status: Ordered Problem List Condition Effective Dates Status Health Status Inform ant Anxiety(Confirmed) Active Coronary artery disease(Confirmed) Active Depression(Confirmed) Active Diabetes mellitus(Confirmed) Active Hyperlipidemia(Confirmed) Active Hyperlipidemia(Confirmed) Active Hypertension(Confirmed) Active Hypertension(Confirmed) Active Hypokalemia(Confirmed) Active 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
--- OUTSIDE RECORDS SUMMARY | 2022-11-29 19:41 | XMS_ITS | Continuity of Care Document ---
Author Name Unknown Organization [facility] Address Unknown Care Team Providers Care Assistant Toddler Teacher Name Role Phone Yaya Messina MD Primary Care Physician Encounter [facility] Date(s): 06/25/21 - 07/25/21 [facility] Attending Physician: Morena Zhang Admitting Physician: Morena Zhang Referring Physician: Morena Zhang Allergies, Adverse Reactions, Alerts Substance Reaction Severity [...] Maintenance, 09/29/16 16:15:05, Route to Pharmacy Electronically, [id number], [facility]/pharmacy #[id number] Start Date: 09/29/16 Status: Ordered aspirin 81 mg oral delayed release tablet 81 mg, By Mouth, Daily, # 90 tablet, Refills 0, Tot. Refills 0, Maintenance, 07/24/21 15:27:00 EST,Route to Pharmacy Electronically, [facility], Partial fill upon patient request if the prescription is for a schedule II opioid drug., 178,... Start Date: 07/24/21 Stop Date: 08/23/21 Status: Ordered aspirin 81 mg oral tablet CHEW AND SWALLOW 1 TABLET DAILY., 01/11/13 15:51:00 Start Date: 01/11/13 Status: Ordered atorvastatin 80 mg oral tablet 1 tablet = 80 mg, By Mouth, Daily at bedtime, # 90 tablet, 0 Refills, Maintenance, 07/24/21 15:26:00 EST, Tablet, [facility], Partial fill upon patient request if the prescription is for aschedule II opioid drug., 178, cm, 07/23/21 9:17:00... Start Date: 07/24/21 Status: Ordered Basaglar KwikPen 100 units/mL subcutaneous solution = 20 units, Subcutaneous Injection, Daily at bedtime, # 10 mL, 0 Refills, Maintenance, 07/24/21 15:26:00 EST, Solution, [facility], Partial fill upon patient request if the prescription isfor a schedule II opioid drug., 178, kevin, 07/23/21 9... Start Date: 07/24/21 Status: Ordered [...] 0 Refills, Maintenance, 05/22/21 10:28:00 EDT, Tablet, [facility], Partial fill upon patient request if the prescription is for a schedule II opioid drug., 178, cm, 05/22/21 8:16:0... Start Date: 05/22/21 Status: Ordered metoprolol 100 mg oral tablet, extended release 100 mg, 1, tablet, By Mouth, Daily, # 30 tablet, Refills 0, Tot. Refills 0, Maintenance, 07/24/21 15:24:00 EST, Route to Pharmacy Electronically, [facility], Partial fill upon patient request if the prescription is for a schedule II opioid... Start Date: 07/24/21 Status: Ordered Motrin IB = 200 mg, [...] Compound Start Date: 07/15/15 Status: Ordered Pen [place], 32 G x 4 mm BD Ultra [...] mg, 1, tablet, By Mouth, Daily, # 90 tablet, Refills 0, Tot. Refills 0, Maintenance, 07/24/21 15:24:00 EST, Route to Pharmacy Electronically, [facility], Partial fill upon patient request if the prescription is for a schedule II opioid d... Start Date: 07/24/21 Status: Ordered valsartan 40 mg oral tablet 40 mg, 1, tablet, By Mouth, Daily, # 90 tablet, Refills 0, Tot. Refills 0, Maintenance, 07/24/21 15:24:00 EST, Route to Pharmacy Electronically, [facility], Partial fill upon patient request if the prescription is for a schedule II opioid d... Start Date: 07/24/21 Status: Ordered Problem List Condition Effective Dates Status Health Status Inform ant Anxiety(Confirmed) Active Coronary artery disease(Confirmed) Active Depression(Confirmed) Active Diabetes mellitus(Confirmed) Active Hyperlipidemia(Confirmed) Active Hyperlipidemia(Confirmed) Active Hypertension(Confirmed) Active Hypertension(Confirmed) Active Hypokalemia(Confirmed) Active Right knee pain(Confirmed) Active Obesity(Confirmed) Active Osteoarthritis(Confirmed) Active Encounter for preventive [facility] examination(Confirmed) Active Type 2 diabetes mellitus(Confirmed) Active Social History Social History Type Response Smoking Status Former smoker; Type: Cigarettes; Stopped at age: 22; Started at age: 18; entered on: 06/02/15 Sex
--- OUTSIDE RECORDS SUMMARY | 2022-11-29 19:41 | XMS_ITS | Continuity of Care Document ---
Author Name Unknown Organization [facility] Address [address] [place] [address]- Care Team Providers Care Chair And Couch Maker Name Role Phone Yaya Messina MD Primary Care Physician [id number] Date(s): 09/17/21 - 01/15/22 [facility] [employer] [facility] [address] [place] [address]- Attending Physician: Yaya Messina MD Allergies, Adverse [...] tablet, Refills 6, Tot. Refills 6, Maintenance, 11/10/21 10:49:00 EDT, Route to Pharmacy Electronically, [facility], 178, cm, 07/29/21 15:37:00 EST,Height, 119.4, kg, 05/15/21 4:44:00 EDT, Dry Weight Start Date: 11/10/21 Status: Ordered aspirin 81 mg oral delayed release tablet 81 mg, By Mouth, Daily, # 90 tablet, Refills 0, Tot. Refills 0, Maintenance, 11/10/21 10:48:00 EDT,Route to Pharmacy Electronically, [facility], Partial fill upon patient request if the prescription is for a schedule II opioid drug., 178,... Start Date: 11/10/21 Stop Date: 12/10/21 Status: Ordered atorvastatin 80 mg oral tablet 1 tablet = 80 mg, By Mouth, Daily at bedtime, # 90 tablet, 1 Refills, Maintenance, 10/05/21 15:03:00 EST, Tablet, [facility], Partial fill upon patient request if the prescription is for aschedule II opioid drug., 178, cm, 07/29/21 15:37:0... Start Date: 10/05/21 Status: Ordered Basaglar KwikPen 100 units/mL subcutaneous solution = 20 units, Subcutaneous Injection, Daily at bedtime, # 10 mL, 0 Refills, Maintenance, 11/10/21 10:48:00 EDT, Solution, [facility], Partial fill upon patient request if the prescription isfor a schedule II opioid drug., 178, cm, 07/29/21 1... Start Date: 11/10/21 Status: Ordered clopidogrel 75 mg oral tablet 75 mg, 1, tablet, By Mouth, Daily, # 90 tablet, Refills 3, Tot. Refills 3, Maintenance, 11/10/21 22:46:00 EDT, Route to Pharmacy Electronically, [facility], Partial fill upon patient request if the prescription is for a schedule II opioid d... Start Date: 11/10/21 Stop Date: 11/05/22 Status: Ordered Diovan HCT 12.5 mg-320 mg oral tablet 1 tablet, By Mouth, Daily, # 30 tablet, 6 Refills, Maintenance, 09/29/16 16:14:59, 1 tablet By Mouth Daily Start Date: 09/29/16 Status: Ordered furosemide 20 mg oral tablet 20 mg, 1, capsule, By Mouth, Once, # 1 capsule, Refills 0, Tot. Refills 0, Soft Stop, 11/05/21 17:10:00 EDT, Route to Pharmacy Electronically, [facility], Partial fill upon patient requestif the prescription is for a schedule II opioid doris... Start Date: 11/05/21 Status: Ordered Insulin Syringe, BD Ultra-Fine 0.5 cc 31 G x 8 mm (5/16in) See Instructions, # 60 each, Refills 11, Tot. Refills 11, Maintenance, injects insulin 2 times daily, 07/16/15 7:56:00, Compound Start Date: 07/16/15 Status: Ordered metFORMIN 500 mg oral tablet, extended release 1 tablet = 500 mg, By Mouth, 2 times a day, # 180 tablet, 3 Refills, Maintenance, 11/10/21 22:48:00EDT, ER Tablet, [facility], Partial fill upon patient request if the prescription is fora schedule II opioid drug., 178, cm, 07/29/21 15:37... Start Date: 11/10/21 Stop Date: 11/05/22 Status: Ordered metoprolol 100 mg oral tablet, extended release 100 mg, 1, tablet, By Mouth, Daily, # 30 tablet, Refills 0, Tot. Refills 0, Maintenance, 11/10/21 10:49:00 EDT, Route to Pharmacy Electronically, [facility], Partial fill upon patient request if the prescription is for a schedule II opioid... Start Date: 11/10/21 Status: Ordered Novolin 70/30 human recombinant subcutaneous injection See Instructions, Inject 30 units before breakfast and 60 units before supper, # 20 mL, 5 Refills, Maintenance, 07/15/15 16:03:51, Injection, Inject 30 units before breakfast and 60 units before supper Start Date: 07/15/15 Status: Ordered Pen [place], 32 G x 4 mm BD Ultra [...] tablet, Refills 0, Tot. Refills 0, Maintenance, 11/05/21 17:10:00 EDT, Route to Pharmacy Electronically, [facility], Partial fill upon patient request if the prescription is for a schedule II opioid d... 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
--- OUTSIDE RECORDS SUMMARY | 2022-11-29 19:41 | XMS_ITS | Continuity of Care Document ---
Author Name Unknown Organization [facility] Address [address] [place] [address]- Care Team Providers Care Conveyor System Operator Name Role Phone Yaya Messina MD Primary Care Physician Encounter [facility] NBR [id number] Date(s): 07/20/21 - 08/22/21 [facility] [address] [place] [address]- Attending Physician: Yaya Messina MD Allergies, Adverse [...] Maintenance, 09/29/16 16:15:05, Route to Pharmacy Electronically, [id number], [facility]/pharmacy #[id number] Start Date: 09/29/16 Status: Ordered aspirin 81 mg oral delayed release tablet 81 mg, By Mouth, Daily, # 90 tablet, Refills 0, Tot. Refills 0, Maintenance, 07/24/21 15:27:00 EST,Route to Pharmacy Electronically, [facility], Partial fill upon patient request if the prescription is for a schedule II opioid drug., 178,... Start Date: 07/24/21 Stop Date: 08/23/21 Status: Ordered atorvastatin 80 mg oral tablet 1 tablet = 80 mg, By Mouth, Daily at bedtime, # 90 tablet, 0 Refills, Maintenance, 07/24/21 15:26:00 EST, Tablet, [facility], Partial fill upon patient request if the prescription is for aschedule II opioid drug., 178, cm, 07/23/21 9:17:00... Start Date: 07/24/21 Status: Ordered Basaglar KwikPen 100 units/mL subcutaneous solution = 20 units, Subcutaneous Injection, Daily at bedtime, # 10 mL, 0 Refills, Maintenance, 07/24/21 15:26:00 EST, Solution, [facility], Partial fill upon patient request [...] 0.5 cc 31 G x 8 mm (516in) See Instructions, # 60 each, Refills 11, Tot. Refills 11, Maintenance, injects insulin 2 times daily, 07/16/15 7:56:00, Compound Start Date: 07/16/15 Status: Ordered metFORMIN 500 mg oral tablet 1 tablet = 500 mg, By Mouth, 2 times a day, # 60 tablet, 0 Refills, Maintenance, 05/22/21 10:28:00 EDT, Tablet, [facility], Partial fill upon patient request if the prescription is for a schedule II opioid drug., 178, cm, 05/22/21 8:16:0... Start Date: 05/22/21 Status: Ordered metoprolol 100 mg oral tablet, extended release 100 mg, 1, tablet, By Mouth, Daily, # 30 tablet, Refills 0, Tot. Refills 0, Maintenance, 07/24/21 15:24:00 EST, Route to Pharmacy Electronically, [facility], Partial fill upon patient request [...] supper Start Date: 07/15/15 Status: Ordered Pen [place], 32 G x 4 mm BD Ultra [...] Active Osteoarthritis(Confirmed) Active Encounter for preventive [facility] examination(Confirmed) Active Type 2 diabetes mellitus(Confirmed) Active Vital Signs Most recent to oldest [Reference Range]: 1 Height 178 cm (07/23/21 9:17 AM) Social History Social History Type Response Smoking Status Former smoker; Type: Cigarettes; Stopped at age: 22; Started at age: 18; entered on: 06/02/15 Sex
--- OUTSIDE RECORDS SUMMARY | 2022-11-29 19:42 | XMS_ITS | Continuity of Care Document ---
Author Name Unknown Organization [facility] Address [address] [place] [address]- Care Team Providers Care Guidance Director Name Role Phone Yaya Messina MD Primary Care Physician Encounter [facility] NBR [id number] Date(s): 07/20/21 - 08/19/21 [facility] [address] [place] [address]- [place] Allergies, Adverse Reactions, Alerts Substance Reaction [...] Maintenance, 09/29/16 16:15:05, Route to Pharmacy Electronically, [id number], [facility]/pharmacy #[id number] Start Date: 09/29/16 Status: Ordered aspirin 81 mg oral delayed release tablet 81 mg, By Mouth, Daily, # 90 tablet, Refills 0, Tot. Refills 0, Maintenance, 07/24/21 15:27:00 EST,Route to Pharmacy Electronically, [facility], Partial fill upon patient request if the prescription is for a schedule II opioid drug., 178,... Start Date: 07/24/21 Stop Date: 08/23/21 Status: Ordered atorvastatin 80 mg oral tablet 1 tablet = 80 mg, By Mouth, Daily at bedtime, # 90 tablet, 0 Refills, Maintenance, 07/24/21 15:26:00 EST, Tablet, [facility], Partial fill upon patient request if the prescription is for aschedule II opioid drug., 178kevin, 07/23/21 9:17:00... Start Date: 07/24/21 Status: Ordered Basaglar KwikPen 100 units/mL subcutaneous solution = 20 units, Subcutaneous Injection, Daily at bedtime, # 10 mL, 0 Refills, Maintenance, 07/24/21 15:26:00 EST, Solution, [facility], Partial fill upon patient [...] 0 Refills, Maintenance, 05/22/21 10:28:00 EDT, Tablet, [facility], Partial fill upon patient request if the prescription is for a schedule II opioid drug., 178, kevin, 05/22/21 8:16:0... Start Date: 05/22/21 Status: Ordered metoprolol 100 mg oral tablet, extended release 100 mg, 1, tablet, By Mouth, Daily, # 30 tablet, Refills 0, Tot. Refills 0, Maintenance, 07/24/21 15:24:00 EST, Route to Pharmacy Electronically, [facility], Partial fill upon patient [...] supper Start Date: 07/15/15 Status: Ordered Pen [place], 32 G x 4 mm BD Ultra [...] Active Osteoarthritis(Confirmed) Active Encounter for preventive [facility] examination(Confirmed) Active Type 2 diabetes mellitus(Confirmed) Active Social History Social History Type Response Smoking Status Former smoker; Type: Cigarettes; Stopped at age: 22; Started at age: 18; entered on: 06/02/15 Sex
--- OUTSIDE RECORDS SUMMARY | 2022-11-29 19:42 | XMS_ITS | Continuity of Care Document ---
Author Name Unknown Organization [facility] Address [address] [place] [address]- Care Team Providers Care Medical Records Library Professor Name Role Phone Yaya Messina MD Primary Care Physician Encounter [facility] NBR [id number] Date(s): 12/16/21 - [facility]/15/22 [facility] [address] [place] [address]- Attending Physician: Admtr, Ar8 Admitting Physician: Admtr, [...] 11/10/21 10:49:00 EDT, Route to Pharmacy Electronically, [facility], 178, cm, 07/29/21 15:37:00 EST,Height, 119.4, kg, 05/15/21 4:44:00 EDT, Dry Weight Start Date: 11/10/21 Status: Ordered aspirin 81 mg oral delayed release tablet 81 mg, By Mouth, Daily, # 90 tablet, Refills 0, Tot. Refills 0, Maintenance, 11/10/21 10:48:00 EDT,Route to Pharmacy Electronically, [facility], Partial fill upon patient request if the prescription is for a schedule II opioid drug., 178,... Start Date: 11/10/21 Stop Date: 12/10/21 Status: Ordered atorvastatin 80 mg oral tablet 1 tablet = 80 mg, By Mouth, Daily at bedtime, # 90 tablet, 1 Refills, Maintenance, 10/05/21 15:03:00 EST, Tablet, [facility], Partial fill upon patient request if the prescription is for aschedule II opioid drug., 178, cm, 07/29/21 15:37:0... Start Date: 10/05/21 Status: Ordered Basaglar KwikPen 100 units/mL subcutaneous solution = 20 units, Subcutaneous Injection, Daily at bedtime, # 10 mL, 0 Refills, Maintenance, 11/10/21 10:48:00 EDT, Solution, [facility], Partial fill upon patient request if the prescription isfor a schedule II opioid drug., 178, cm, 07/29/21 1... Start Date: 11/10/21 Status: Ordered clopidogrel 75 mg oral tablet 75 mg, 1, tablet, By Mouth, Daily, # 90 tablet, Refills 3, Tot. Refills 3, Maintenance, 11/10/21 22:46:00 EDT, Route to Pharmacy Electronically, [facility], Partial fill upon [...] 11/05/21 17:10:00 EDT, Route to Pharmacy Electronically, [facility], Partial fill upon patient requestif [...] 3 Refills, Maintenance, 11/10/21 22:48:00EDT, ER Tablet, [facility], Partial fill upon patient request if the prescription is fora schedule II opioid drug., 178, cm, 07/29/21 15:37... Start Date: 11/10/21 Stop Date: 11/05/22 Status: Ordered metoprolol 100 mg oral tablet, extended release 100 mg, 1, tablet, By Mouth, Daily, # 30 tablet, Refills 0, Tot. Refills 0, Maintenance, 11/10/21 10:49:00 EDT, Route to Pharmacy Electronically, [facility], Partial fill upon [...] supper Start Date: 07/15/15 Status: Ordered Pen [place], 32 G x 4 mm BD Ultra [...] 11/05/21 17:10:00 EDT, Route to Pharmacy Electronically, [facility], Partial fill upon [...] Osteoarthritis(Confirmed) Active Encounter for preventive [facility] examination(Confirmed) Active Type 2 diabetes mellitus(Confirmed) Active Social History Social History Type Response Smoking Status Former smoker; Type: Cigarettes; Stopped at age: 22; Started at age: 18; entered on: 06/02/15 Sex
--- OUTSIDE RECORDS SUMMARY | 2022-11-29 19:42 | XMS_ITS | Continuity of Care Document ---
Author Name Unknown Organization [facility] [place] Address [address] [place] [address]- Care Team Providers Care Stringed Instrument Repairer Name Role Phone Parul Rucker MD Primary Care Physician En[facility] NBR [id number] Date(s): 10/17/19 - 10/27/19 [facility] [address] [address]- [facility] Attending Physician: Morena Zhang Admitting Physician: AdmMorena [...] Maintenance, 09/29/16 16:15:05, Route to Pharmacy Electronically, [id number], [facility]/pharmacy #[id number] Start Date: 09/29/16 Status: Ordered [...] Obesity(Confirmed) Active Osteoarthritis(Confirmed) Active Encounter for preventive [place] examination(Confirmed) Active Social History Social History Type Response Smoking Status Former smoker; Type: Cigarettes; Stopped at age: 22; Started at age: 18; entered on: 06/02/15 Sex
--- OUTSIDE RECORDS SUMMARY | 2022-11-29 19:42 | XMS_ITS | Continuity of Care Document ---
Author Name Unknown [facility] Address [address] [place] [address]- Care Team Providers Care Groover Operator Name Role Phone Yaya Messina MD Primary Care Physician Encounter [facility] NBR [id number] Date(s): 05/15/21 - [facility] [address] [place] [address] Allergies, Adverse Reactions, Alerts Substance Reaction [...] Maintenance, 09/29/16 16:15:05, Route to Pharmacy Electronically, [id number], [facility]/pharmacy #[id number] Start Date: 09/29/16 Status: [...] Obesity(Confirmed) Active Osteoarthritis(Confirmed) Active En[facility](Confirmed) Active Social History Social History Type Response Smoking Status Former smoker; Type: Cigarettes; Stopped at age: 22; Started at age: 18; entered on: 06/02/15 Sex
--- OUTSIDE RECORDS SUMMARY | 2022-11-29 19:42 | XMS_ITS | Continuity of Care Document ---
Author Name Unknown Organization [facility] Address [address] [place] [address]- Care Team Providers Care Account Manager Employee Benefits Name Role Phone Parul Rucker MD Primary Care Physician Encounter [facility] Date(s): 03/03/21 - 04/02/21 [facility] [address] [place] [address]- Attending Physician: Admtr, Dante8 Admitting Physician: Admtr, Ar8 Referring Physician: Admtr, [...] Maintenance, 09/29/16 16:15:05, Route to Pharmacy Electronically, [id number], [facility]/pharmacy #[id number] Start Date: 09/29/16 [...] Obesity(Confirmed) Active Osteoarthritis(Confirmed) Active Encounter for preventive [facility] examination(Confirmed) Active Social History Social History Type Response Smoking Status Former smoker; Type: Cigarettes; Stopped at age: 22; Started at age: 18; entered on: 06/02/15 Sex
--- OUTSIDE RECORDS SUMMARY | 2022-11-29 19:42 | XMS_ITS | Continuity of Care Document ---
Author Name Unknown Organization [facility] Address [address] [address]- Care Team Providers Care Metal Buggy Operator Name Role Phone Yaya Messina MD Primary Care Physician Encounter [facility] Date(s): 05/15/21 - 06/24/21 [facility] [address] [address]- Attending Physician: Abbe Whitt MD Admitting Physician: [...] Maintenance, 09/29/16 16:15:05, Route to Pharmacy Electronically, [id number], [facility]/pharmacy #[id number] Start Date: 09/29/16 Status: Ordered aspirin 81 mg oral delayed release tablet 81 mg, By Mouth, Daily, # 30 tablet, Refills 0, Tot. Refills 0, Maintenance, 05/20/21 17:33:00 EDT,Route to Pharmacy Electronically, [facility], Partial fill upon patient request if [...] 0 Refills, Maintenance, 05/20/21 17:27:00 EDT, Tablet, [facility], Partial fill upon patient request if the prescription is for a schedule II opioid drug., 178, cm, 05/20/21 15:3... Start Date: 05/20/21 Status: Ordered Basaglar KwikPen 100 units/mL subcutaneous solution = 20 units, Subcutaneous Injection, Daily at bedtime, # 10 mL, 0 Refills, Maintenance, 05/22/21 10:40:00 EDT, Solution, [facility], Partial fill upon patient [...] 0 Refills, Maintenance, 05/22/21 10:28:00 EDT, Tablet, [facility], Partial fill upon patient request if the prescription is for a schedule II opioid drug., 178, cm, 05/22/21 8:16:0... Start Date: 05/22/21 Status: Ordered metoprolol 100 mg oral tablet, extended release 100 mg, 1, tablet, By Mouth, Daily, # 30 tablet, Refills 0, Tot. Refills 0, Maintenance, 05/20/21 17:27:00 EDT, Route to Pharmacy Electronically, [facility], Partial fill upon patient [...] Compound Start Date: 07/15/15 Status: Ordered Pen [place], 32 G x 4 mm BD Ultra [...] 05/20/21 17:27:00 EDT, [facility] Pharm[facility] Electronically, [facility], Partial fill upon patient request if the prescription is for a schedule II opioi... Start Date: 05/20/21 Status: Ordered valsartan 40 mg oral tablet 40 mg, 1, tablet, By Mouth, Daily, # 30 tablet, Refills 0, Tot. Refills 0, Maintenance, 05/20/21 17:27:00 EDT, Route to Pharmacy Electronically, [facility], Partial fill upon patient [...] Obesity(Confirmed) Active Osteoarthritis(Confirmed) Active Encounter for preventive [facility] examination(Confirmed) Active Type 2 diabetes mellitus(Confirmed) Active Social History Social History Type Response Smoking Status Former smoker; Type: Cigarettes; Stopped at age: 22; Started at age: 18; entered on: 06/02/15 Sex
--- OUTSIDE RECORDS SUMMARY | 2022-11-29 19:42 | XMS_ITS | Continuity of Care Document ---
Author Name Unknown Organization [facility] Address Unknown Care Team Providers Care Resource Program Teacher Name Role Phone Yaya Messina MD Primary Care Physician Encounter [facility] Date(s): 06/25/21 - 07/02/21 [facility] Attending Physician: Jose Eduardo NO, Abbe Referring Physician: Not on Staff, Referring MD [...] Maintenance, 09/29/16 16:15:05, Route to Pharmacy Electronically, [id number], [facility]/pharmacy #[id number] Start Date: 09/29/16 Status: Ordered aspirin 81 mg oral delayed release tablet 81 mg, By Mouth, Daily, # 30 tablet, Refills 0, Tot. Refills 0, Maintenance, 05/20/21 17:33:00 EDT,Route to Pharmacy Electronically, [facility], Partial fill upon patient [...] 0 Refills, Maintenance, 05/20/21 17:27:00 EDT, Tablet, [facility], Partial fill upon patient request if the prescription is for a schedule II opioid drug., 178, kevin, 05/20/21 15:3... Start Date: 05/20/21 Status: Ordered Basaglar KwikPen 100 units/mL subcutaneous solution = 20 units, Subcutaneous Injection, Daily at bedtime, # 10 mL, 0 Refills, Maintenance, 05/22/21 10:40:00 EDT, Solution, [facility], Partial fill upon patient request if the prescriptionis for a schedule II opioid drug., kevin Davies, ... Start Date: 05/22/21 Status: Ordered Diovan [...] 0 Refills, Maintenance, 05/22/21 10:28:00 EDT, Tablet, [facility], Partial fill upon patient request if the prescription is for a schedule II opioid drug., kevin Davies, 05/22/21 8:16:0... Start Date: 05/22/21 Status: Ordered metoprolol 100 mg oral tablet, extended release 100 mg, 1, tablet, By Mouth, Daily, # 30 tablet, Refills 0, Tot. Refills 0, Maintenance, 05/20/21 17:27:00 EDT, Route to Pharmacy Electronically, [facility], Partial fill upon patient [...] Compound Start Date: 07/15/15 Status: Ordered Pen [place], 32 G x 4 mm BD Ultra [...] 05/20/21 17:27:00 EDT, Route to Pharmacy Electronically, [facility], Partial fill upon patient request if the prescription is for a schedule II opioi... Start Date: 05/20/21 Status: Ordered valsartan 40 mg oral tablet 40 mg, 1, tablet, By Mouth, Daily, # 30 tablet, Refills 0, Tot. Refills 0, Maintenance, 05/20/21 17:27:00 EDT, Route to Pharmacy Electronically, [facility], Partial fill upon patient [...] Osteoarthritis(Confirmed) Active Encounter for preventive [facility] examination(Confirmed) Active Type 2 diabetes mellitus(Confirmed) Active Social History Social History Type Response Smoking Status Former smoker; Type: Cigarettes; Stopped at age: 22; Started at age: 18; entered on: 06/02/15 Sex
--- OUTSIDE RECORDS SUMMARY | 2022-11-29 19:42 | XMS_ITS | Continuity of Care Document ---
Author Name Unknown Organization [facility] Address [address] [place] [address]- Care Team Providers [facility] Worker Name Role Phone Yaya Messina MD Primary Care Physician Encounter [facility] NBR [id number] Date(s): 07/30/21 - [facility] [address] [place] [id number]- Attending Physician: Yaya Messina MD Allergies, Adverse [...] Maintenance, 09/29/16 16:15:05, Route to Pharmacy Electronically, [id number], [facility]/pharmacy #[id number] Start Date: 09/29/16 Status: Ordered aspirin 81 mg oral delayed release tablet 81 mg, By Mouth, Daily, # 90 tablet, Refills 0, Tot. Refills 0, Maintenance, 07/24/21 15:27:00 EST,Route to Pharmacy Electronically, [id number], Partial fill upon patient request if the prescription is for a schedule II opioid drug., 178,... Start Date: 07/24/21 Stop Date: 08/23/21 Status: Ordered atorvastatin 80 mg oral tablet 1 tablet = 80 mg, By Mouth, Daily at bedtime, # 90 tablet, 0 Refills, Maintenance, 07/24/21 15:26:00 EST, Tablet, [facility] [id number], Partial fill upon patient request if the prescription is for aschedule II opioid drug., 178, cm, 07/23/21 9:17:00... Start Date: 07/24/21 Status: Ordered Basaglar KwikPen 100 units/mL subcutaneous solution = 20 units, Subcutaneous Injection, Daily at bedtime, # 10 mL, 0 Refills, Maintenance, 07/24/21 15:26:00 EST, Solution, [facility] [id number], Partial fill upon patient request [...] 0.5 cc 31 G x 8 mm (16in) See Instructions, # 60 each, Refills 11, Tot. Refills 11, Maintenance, injects insulin 2 times daily, 07/16/15 7:56:00, Compound Start Date: 07/16/15 Status: Ordered metFORMIN 500 mg oral tablet 1 tablet = 500 mg, By Mouth, 2 times a day, # 60 tablet, 0 Refills, Maintenance, 05/22/21 10:28:00 EDT, Tablet, [facility], Partial fill upon patient request if the prescription is for a schedule II opioid drug., 178, cm, 05/22/21 8:16:0... Start Date: 05/22/21 Status: Ordered metoprolol 100 mg oral tablet, extended release 100 mg, 1, tablet, By Mouth, Daily, # 30 tablet, Refills 0, Tot. Refills 0, Maintenance, 07/24/21 15:24:00 EST, Route to Pharmacy Electronically, [facility] [id number], Partial fill upon patient request [...] supper Start Date: 07/15/15 Status: Ordered Pen [place], 32 G x 4 mm BD Ultra [...] Active Osteoarthritis(Confirmed) Active Encounter for preventive [facility] examination(Confirmed) Active Type 2 diabetes mellitus(Confirmed) Active Vital Signs Most recent to oldest [Reference Range]: 1 Height 178 cm (07/29/21 3:37 PM) Social History Social History Type Response Smoking Status Former smoker; Type: Cigarettes; Stopped at age: 22; Started at age: 18; entered on: 06/02/15 Sex
--- OUTSIDE RECORDS SUMMARY | 2022-11-29 19:42 | XMS_ITS | Continuity of Care Document ---
Author Name Unknown Organization [facility] Address [address] [place] [address]- Care Team Providers Care Retail Aide Name Role Phone Yaya Messina MD Primary Care Physician Encounter [facility] NBR [id number] Date(s): 11/09/21 - 12/09/21 [facility] [address] [place] [id number]- [place] Allergies, Adverse Reactions, Alerts Substance Reaction [...] 11/10/21 10:49:00 EDT, Route to Pharmacy Electronically, [facility] [id number], 178, cm, 07/29/21 15:37:00 EST,Height, 119.4, kg, 05/15/21 4:44:00 EDT, Dry Weight Start Date: 11/10/21 Status: Ordered aspirin 81 mg oral delayed release tablet 81 mg, By Mouth, Daily, # 90 tablet, Refills 0, Tot. Refills 0, Maintenance, 11/10/21 10:48:00 EDT,Route to Pharmacy Electronically, [facility] [id number], Partial fill upon patient request if the prescription is for a schedule II opioid drug., 178,... Start Date: 11/10/21 Stop Date: 12/10/21 Status: Ordered atorvastatin 80 mg oral tablet 1 tablet = 80 mg, By Mouth, Daily at bedtime, # 90 tablet, 1 Refills, Maintenance, 10/05/21 15:03:00 EST, Tablet, [facility] [id number], Partial fill upon patient request if the prescription is for aschedule II opioid drug., 178, cm, 07/29/21 15:37:0... Start Date: 10/05/21 Status: Ordered Basaglar KwikPen 100 units/mL subcutaneous solution = 20 units, Subcutaneous Injection, Daily at bedtime, # 10 mL, 0 Refills, Maintenance, 11/10/21 10:48:00 EDT, Solution, [facility] [id number], Partial fill upon patient request if the prescription isfor a schedule II opioid drug., 178, cm, 07/29/21 1... Start Date: 11/10/21 Status: Ordered clopidogrel 75 mg oral tablet 75 mg, 1, tablet, By Mouth, Daily, # 90 tablet, Refills 3, Tot. Refills 3, Maintenance, 11/10/21 22:46:00 EDT, Route to Pharmacy Electronically, [facility] [id number], Partial fill upon patient [...] 11/05/21 17:10:00 EDT, Route to Pharmacy Electronically, [facility] [id number], Partial fill upon patient [...] 3 Refills, Maintenance, 11/10/21 22:48:00EDT, ER Tablet, [facility] [id number], Partial fill upon patient request if the prescription is fora schedule II opioid drug., 178, cm, 07/29/21 15:37... Start Date: 11/10/21 Stop Date: 11/05/22 Status: Ordered metoprolol 100 mg oral tablet, extended release 100 mg, 1, tablet, By Mouth, Daily, # 30 tablet, Refills 0, Tot. Refills 0, Maintenance, 11/10/21 10:49:00 EDT, Route to Pharmacy Electronically, [facility] [id number], Partial fill upon patient [...] supper Start Date: 07/15/15 Status: Ordered Pen [place], 32 G x 4 mm BD Ultra [...] 11/05/21 17:10:00 EDT, Route to Pharmacy Electronically, [facility] [id number], Partial fill upon patient [...] Active Osteoarthritis(Confirmed) Active Encounter for preventive [facility] examination(Confirmed) Active Type 2 diabetes mellitus(Confirmed) Active Social History Social History Type Response Smoking Status Former smoker; Type: Cigarettes; Stopped at age: 22; Started at age: 18; entered on: 06/02/15 Sex
--- NOTE | 2022-11-29 19:56 | PC.NURSE ---
I resumed care of the pt at 1900. Pt is slow when answering questions, he was unsure of where he is now but was able to tell me that he lives with his brother Duncan at [address] [place] [address] in [place]. This address is an [employer] in [place]. I called the [facility] and was able to leave a message for the pt's brother. [employer] said he will give the brother the hospital number and the brother will call back. In pt's phone, Duncan was listed with the number [phone]. The call did not go through. [facility] number is [phone]
[2022-11-29 20:22] VITALS: BP 175/78; PULSE 73; RESP 18; TEMP 36.9; O2SAT 100
[2022-11-29] MEDS: iohexoL 350 MG/ML 100 ML INFUS..BTL IV (20:22)
[2022-11-29 21:00] LABS: ~Lactic Acid-LAB USE ONLY 1.5 mmol/L (0.5-2.0)
[2022-11-29 22:42] VITALS: BP 159/66; PULSE 82; RESP 18; TEMP 37.2; O2SAT 99
--- NOTE | 2022-11-29 22:47 | P.HPHOSP_ITS ---
History of Present Illness Date of Service: 11/29/22 Chief Complaint: AMS This is a 67-year-old male with pertinent history of essential hypertension, CVA, BPH, insulin-dependent diabetes mellitus, PE on Eliquis who was brought to the emergency department evaluation of altered mentation. Patient was brought via ambulance, he was found wandering outside of [address] Patient is a poor historian and does not know why he is here. History was obtained from chart review and ER provider. Patient confused and only oriented to person but not to place, time or situation. Patient had an appointment today with his urologist. He does not know why he is in the hospital and he does not know what medications he takes. Does not know his emergency contact information. As per paperwork, patient was recently discharged from [facility] in [place]. He was discharged with cefpodoxime for UTI and with a diagnosis of PE and urothelial mass. Unable to obtain review of systems Review of Systems Review of Systems: Yes Unobtainable due to mental status [facility] Medical History BPH (benign prostatic hyperplasia) CVA (cerebral vascular accident) Hypertension Insulin dependent type 2 diabetes mellitus, controlled Pulmonary emboli Pertinent family history: Unable to obtain Social History Advance Directives: No Advance Directives Information Provided: No Meds Allergies Allergy/AdvReac Type Severity Reaction Status Date / Time Unable to Assess Allergy Unverified 11/29/22 16:53 Physical Exam Vital Signs and Narrative: Vital Signs: Last Vital Signs Temp 99.0 F 11/29/22 22:42 Pulse 82 11/29/22 22:42 Resp 18 11/29/22 22:42 BP 159/66 H 11/29/22 22:42 Pulse Ox 99 11/29/22 22:42 O2 Del Method Room Air 11/29/22 22:42 BMI result Body Mass Index 32.5 Middle-aged male lying in bed in no distress Neck supple, no JVD Regular rate and rhythm, S1-S2 heard Regular breath sounds bilaterally, no wheezing or crackles appreciated Abdomen soft nontender, no guarding, no rigidity Patient is awake, alert and oriented to self, disoriented to place, time and person ; equal strength in bilateral upper and lower extremity, no facial droop No pedal edema Results Labs 11/29/22 17:25 11/29/22 17:25 Labs: Laboratory Results - last 24 hr 11/29/22 11/29/22 11/29/22 17:04 17:25 17:25 MCV 91.5 MCH 30.9 MCHC 33.8 RDW 13.2 Plt Count 364 MPV 9.6 Immature Gran % (Auto) 0.4 Neut % (Auto) 70.7 Lymph % (Auto) 20.8 [place] % (Auto) 6.8 Eos % (Auto) 0.7 Baso % (Auto) 0.6 Lymph # (Auto) 2.3 [place] # (Auto) 0.7 Eos # (Auto) 0.1 Baso # (Auto) 0.1 Abs Immat Gran (auto) 0.04 H Absolute Neuts (auto) 7.7 Absolute Nucleated RBC 0.000 Nucleated RBC % (auto) 0.0 Anion Gap 18 Estim Creat Clear Calc 64.7 Estimated GFR 50 POC Glucose 129 H Random Glucose 123 H Lactic Acid Lactic Acid F/U @ 2Hr Calcium 9.1 Magnesium 1.6 Total Bilirubin 1.2 H AST 14 ALT 18 Alkaline Phosphatase 112 Total Protein 7.1 Albumin 3.9 Lipase 14 Urine Color Urine Appearance Urine pH Ur Specific [place] Urine Protein Urine Glucose (UA) Urine Ketones Urine Blood Urine Nitrite Ur Leukocyte Esterase Urine RBC Urine WBC Ur Squamous Epith Cells Urine Bacteria Hyaline Casts Urine Opiates Screen Urine Fentanyl Screen Ur Barbiturates Screen Ur Phencyclidine Scrn Ur Amphetamines Screen U Benzodiazepines Scrn Urine Cocaine Screen U Marijuana (THC) Screen Ethyl Alcohol < 10 COVID-19 (TASHA) COVID-19 Clin Com 11/29/22 11/29/22 11/29/22 17:25 17:25 17:55 MCV MCH MCHC RDW Plt Count MPV Immature Gran % (Auto) Neut % (Auto) Lymph % (Auto) [place] % (Auto) Eos % (Auto) Baso % (Auto) Lymph # (Auto) [place] # (Auto) Eos # (Auto) Baso # (Auto) Abs Immat Gran (auto) Absolute Neuts (auto) Absolute Nucleated RBC Nucleated RBC % (auto) Anion Gap Estim Creat Clear Calc Estimated GFR POC Glucose Random Glucose Lactic Acid 3.1 H* Lactic Acid F/U @ 2Hr Calcium Magnesium Total Bilirubin AST ALT Alkaline Phosphatase Total Protein Albumin Lipase Urine Color Yellow Urine Appearance Clear Urine pH 7.0 Ur Specific [place] <= 1.005 Urine Protein Negative Urine Glucose (UA) Negative Urine Ketones Negative Urine Blood Small (1+) H Urine Nitrite Negative Ur Leukocyte Esterase Moderate (2+) H Urine RBC 0-2 Urine WBC 6-10 H Ur Squamous Epith Cells 0-2 Urine Bacteria None Seen Hyaline Casts 0-2 Urine Opiates Screen Urine Fentanyl Screen Ur Barbiturates Screen Ur Phencyclidine Scrn Ur Amphetamines Screen U Benzodiazepines Scrn Urine Cocaine Screen U Marijuana (THC) Screen Ethyl Alcohol COVID-19 (TASHA) Negative COVID-19 Clin Com See Note 11/29/22 11/29/22 17:55 20:43 MCV MCH MCHC RDW Plt Count MPV Immature Gran % (Auto) Neut % (Auto) Lymph % (Auto) [place] % (Auto) Eos % (Auto) Baso % (Auto) Lymph # (Auto) [place] # (Auto) Eos # (Auto) Baso # (Auto) Abs Immat Gran (auto) Absolute Neuts (auto) Absolute Nucleated RBC Nucleated RBC % (auto) Anion Gap Estim Creat Clear Calc Estimated GFR POC Glucose Random Glucose Lactic Acid Lactic Acid F/U @ 2Hr 1.5 Calcium Magnesium Total Bilirubin AST ALT Alkaline Phosphatase Total Protein Albumin Lipase Urine Color Urine Appearance Urine pH Ur Specific [place] Urine Protein Urine Glucose (UA) Urine Ketones Urine Blood Urine Nitrite Ur Leukocyte Esterase Urine RBC Urine WBC Ur Squamous Epith Cells Urine Bacteria Hyaline Casts Urine Opiates Screen Not Detected Urine Fentanyl Screen Not Detected Ur Barbiturates Screen Not Detected Ur Phencyclidine Scrn Not Detected Ur Amphetamines Screen Not Detected U Benzodiazepines Scrn Not Detected Urine Cocaine Screen Not Detected U Marijuana (THC) Screen Not Detected Ethyl Alcohol COVID-19 (TASHA) COVID-19 Clin Com Imaging Radiologist's Impressions: Impressions Head CT 11/29/22 20:42 IMPRESSION: Focal encephalomalacia in the left frontal and insular cortices, most consistent with a prior infarct. A superimposed acute infarct in this region cannot excluded. Consider correlation with MRI of the brain for further assessment if clinically indicated. Abdomen/Pelvis CT 11/29/22 21:02 IMPRESSION: Watkins catheter in the bladder. The bladder is empty. The bladder wall is diffusely thickened. Mild bilateral hydronephrosis and ureteral dilatation down to the bladder. Heterogeneous decreased enhancement in the lower pole the right kidney and question small amount of adjacent fluid. Appearance is questionable for pyelonephritis. Differential would include infarct. Diverticulosis of the colon. Upper normal-size gallbladder. No gallstone seen. Calcifications in the liver and spleen suggestive of old granulomatous disease. Probable small esophageal hernia. Fleischner guidelines were followed. Chest CTA 11/29/22 21:02 IMPRESSION: No evidence of pulmonary embolism. VTE: negative Assessment and Plan (1) Altered mental status: Status: Acute Plan This is a 67-year-old male with pertinent history of essential hypertension, CVA, BPH, insulin-dependent diabetes mellitus, PE on Eliquis who was brought to the emergency department evaluation of altered mentation. #. Acute encephalopathy, unclear etiology: CT with prior infarct. Obtaining MRI to rule out acute CVA #. Imaging with cystitis and questionable pyelonephritis: Initiating IV Rocephin while in the hospital. Follow urine culture. Patient was on cefpodoxime and hence UA not significant #. Urothelial mass: Follow up outpatient with urologist, Dr. Jason #. History of PE on Eliquis #. Essential hypertension: Continue home antihypertensives #. Insulin-dependent diabetes mellitus: Initiating Accu-Cheks with sliding scale insulin #. Elevated creatinine: Unclear baseline. CHAPIS vs CKD. Monitor creatinine and urine output with fluid resuscitation. Avoid nephrotoxins #. Acute lactic acidosis: Due to hypoperfusion. Not sepsis. Resolved with fluid resuscitation #. BPH on Flomax Med rec pending DVT prophylaxis: On Eliquis Cardiac diet Full code Admit as inpatient and will require two night minimum hospital stay for IV antibiotics and monitoring mentation Time Spent With Patient Time: Total time managing care of this patient today ____ minutes. Quality Stroke Does the patient have a stroke diagnosis?: No VTE Prior VTE?: No VTE Risk Level:: Medical - moderate - high VTE Device Contraindication: Treatment Not Indicated VTE Drug Contraindication: N/A - Med Ordered
[2022-11-30] MEDS: 0.9 % Sodium Chloride Flush 3 ML SYRINGE IVFLUSH ×4 (00:21→21:13)
[2022-11-30 02:04] VITALS: BMI 30.7
[2022-11-30 02:15] VITALS: BP 152/78; PULSE 93; RESP 18; TEMP 36.9; O2SAT 96
[2022-11-30 06:28] LABS: MANUAL DIFF FLAG NO
[2022-11-30 06:36] LABS: Basophils Absolute Auto 0.1 X10*3/uL (0.0-0.2); Basophils Percent Auto 0.7 % (0-2); Eosinophils Absolute Auto 0.2 X10*3/uL (0.0-0.4); Eosinophils Percent Auto 1.6 % (0-4); Hematocrit 37.7 % (42.0-52.0); Hemoglobin 13.3 g/dl (14.0-18.0); Imm Gran Abs Auto 0.03 X10*3/uL (0.00-0.03); Imm Gran Pct Auto 0.3 % (0.0-0.4); Lymphocytes Percent Auto 21.4 % (20-40); Mean Corpuscular HGB Conc 35.3 g/dl (31.0-36.0); Mean Corpuscular Hemoglobin 32.4 pg (27.0-33.0); Mean Platelet Volume 10.3 fL (9.4-12.4); Monocytes Absolute Auto 0.7 X10*3/uL (0.1-1.2); Monocytes Percent Auto 7.7 % (2-11); Neutrophils Absolute Auto 6.2 x10*3/uL (2.0-8.3); Neutrophils Percent Auto 68.3 % (45-73); Platelet Count 309 X10*3/uL (160-400); Red Cell Distribution Width 13.2 % (11.0-16.0); White Blood Count 9.1 X10*3/uL (4.8-10.8)
[2022-11-30 07:02] LABS: Anion Gap 12 (12-20); Blood Urea Nitrogen 13 mg/dL (9-16); Carbon Dioxide 22 mmol/L (22-29); Chloride 109 mmol/L (96-108); Creatinine Clr Calc Pharmacy 83.8; Estimated Glomerular Filt Rate > 60; Glucose Random 218 mg/dL (60-115); Potassium 4.4 mmol/L (3.3-5.1); Sodium 139 mmol/L (135-145)
[2022-11-30 07:07] VITALS: BP 138/77; PULSE 71; RESP 18; TEMP 36.5; O2SAT 97
--- NOTE | 2022-11-30 07:14 | PHA.MEDREC ---
Pharmacy Consult ? Medication Reconciliation Pharmacy has completed the medication reconciliation. Pt confused, used recent claim history
[2022-11-30 07:26] LABS: Glucose, Whole Blood 220 mg/dL (60-115)
[2022-11-30 07:47] LABS: Thyroid Stimulating Hormone 1.16 uIU/mL (0.32-4.0)
[2022-11-30] MEDS: Insulin Lispro 100 UNIT/ML 3 ML VIAL SUBCUT ×4 (08:14→21:13)
[2022-11-30 11:21] LABS: Glucose, Whole Blood 269 mg/dL (60-115)
--- NOTE | 2022-11-30 12:48 | MHC.CM.PN ---
Male 67yrs DX AMS Patient was sent from [address] [place] [address]. The patient [facility]. His brother Duncan lives with him [phone](no answer) [place] [phone](no answer). He was discharged from [facility] 11/24/22. @ Discharge he was scheduled to see Dr Rebolledo, for Watkins catheter removal. The doctor formerly had a office @ [facility] 11/29 3:15pm. The doctor now practices in [facility], [address] [place] [address] Rd [phone]. Hospital staff wrote the wrong address on the DC instructions. The patient was transported to [place] by [facility] [phone] ([facility]). Transport back home was booked and scheduled for 4:30 pm case picker. A staff member went with him to wait for transport. The patient reported dizziness and was shakey. PMH sig for DM. Pt stated that his BGL was the issue. BLS transport to [facility]. The patient is forgetful. He stated that he had a brain injury in the past. The patient lived in the [place] area prior to [place]. Thru his pharmacy prescriptions, Dr Jules Batista was identified as his PCP prior to moving. A phone call was received from [facility]. She stated that they would not continue home services. The patient was difficult to reach. The home was cluttered. She stated that the patient was a hoarder. The environment was not safe for staff. She stated that [facility] services has an open case. [facility] was contacted. They stated that they were informed by [facility] they will not provide services. Contact info was provided for [facility] in [facility]. T/W called and spoke with Lauren. She stated that they had received a call from the home care agency; but had not met with the patient yet. It was explained to Lauren that we would send the patient back to his home, the [facility], once he is medically cleared.
--- NOTE | 2022-11-30 13:32 | P.PNIM_ITS ---
Subjective Subjective Date of Service: 11/30/22 Physical Exam Vital Signs: Vital Signs: Last Vital Signs Temp 97.7 F 11/30/22 07:07 Pulse 71 11/30/22 07:07 Resp 18 11/30/22 07:07 BP 138/77 11/30/22 07:07 Pulse Ox 97 11/30/22 07:07 O2 Del Method Room Air 11/30/22 07:07 BMI result Body Mass Index 30.7 Objective Data Active Medications Acetaminophen (Acetaminophen Supp 650 Mg Supp.Rect) 650 mg IA Q6H PRN PRN Reason: Pain, Mild (Pain Scale 1-3) Acetaminophen (Acetaminophen 325 Mg Tablet) 650 mg PO Q6H PRN PRN Reason: Pain, Mild (Pain Scale 1-3) Glucose (Glucose Gel 15 Gm Gel..Gram.) 15 gm PO Q15M PRN; Protocol PRN Reason: per Hypoglycemia Standing Ord. Dextrose (D10) 250 mls @ 750 mls/hr IV Q15M PRN; Protocol PRN Reason: per Hypoglycemia Standing Ord. Ceftriaxone Sodium 1 gm/ (Sodium Chloride) 50 mls @ 100 mls/hr IV Q24H [facility] Insulin Human Lispro (Insulin Lispro 100 Unit/Ml 3 Ml Vial) 0 unit SUBCUT QIDACHS [facility]; Protocol Last Admin: 11/30/22 12:22 Dose: 6 unit Documented By: SHARAN Melatonin (Melatonin 3 Mg Tablet) 6 mg PO BEDTIME PRN PRN Reason: Insomnia Ondansetron HCl (Ondansetron Hcl 4 Mg/2 Ml Vial) 4 mg IVPUSH Q8H PRN PRN Reason: Nausea and Vomiting Sodium Chloride (0.9 % Sodium Chloride Flush 3 Ml Syringe) 3 ml IVFLUSH [facility] Last Admin: 11/30/22 08:15 Dose: 3 ml Documented By: SHARAN Labs 11/30/22 05:26 11/30/22 05:26 Labs: Laboratory Results - last 24 hr 11/29/22 11/29/22 11/29/22 17:04 17:25 17:25 MCV 91.5 MCH 30.9 MCHC 33.8 RDW 13.2 Plt Count 364 MPV 9.6 Immature Gran % (Auto) 0.4 Neut % (Auto) 70.7 Lymph % (Auto) 20.8 [place] % (Auto) 6.8 Eos % (Auto) 0.7 Baso % (Auto) 0.6 Lymph # (Auto) 2.3 [place] # (Auto) 0.7 Eos # (Auto) 0.1 Baso # (Auto) 0.1 Abs Immat Gran (auto) 0.04 H Absolute Neuts (auto) 7.7 Absolute Nucleated RBC 0.000 Nucleated RBC % (auto) 0.0 Anion Gap 18 Estim Creat Clear Calc 64.7 Estimated GFR 50 POC Glucose 129 H Random Glucose 123 H Lactic Acid Lactic Acid F/U @ 2Hr Calcium 9.1 Magnesium 1.6 Total Bilirubin 1.2 H AST 14 ALT 18 Alkaline Phosphatase 112 Total Protein 7.1 Albumin 3.9 Lipase 14 TSH Urine Color Urine Appearance Urine pH Ur Specific [place] Urine Protein Urine Glucose (UA) Urine Ketones Urine Blood Urine Nitrite Ur Leukocyte Esterase Urine RBC Urine WBC Ur Squamous Epith Cells Urine Bacteria Hyaline Casts Urine Opiates Screen Urine Fentanyl Screen Ur Barbiturates Screen Ur Phencyclidine Scrn Ur Amphetamines Screen U Benzodiazepines Scrn Urine Cocaine Screen U Marijuana (THC) Screen Ethyl Alcohol < 10 COVID-19 (TASHA) COVID-19 Clin Com 11/29/22 11/29/22 11/29/22 17:25 17:25 17:55 MCV MCH MCHC RDW Plt Count MPV Immature Gran % (Auto) Neut % (Auto) Lymph % (Auto) [place] % (Auto) Eos % (Auto) Baso % (Auto) Lymph # (Auto) [place] # (Auto) Eos # (Auto) Baso # (Auto) Abs Immat Gran (auto) Absolute Neuts (auto) Absolute Nucleated RBC Nucleated RBC % (auto) Anion Gap Estim Creat Clear Calc Estimated GFR POC Glucose Random Glucose Lactic Acid 3.1 H* Lactic Acid F/U @ 2Hr Calcium Magnesium Total Bilirubin AST ALT Alkaline Phosphatase Total Protein Albumin Lipase TSH Urine Color Yellow Urine Appearance Clear Urine pH 7.0 Ur Specific [place] <= 1.005 Urine Protein Negative Urine Glucose (UA) Negative Urine Ketones Negative Urine Blood Small (1+) H Urine Nitrite Negative Ur Leukocyte Esterase Moderate (2+) H Urine RBC 0-2 Urine WBC 6-10 H Ur Squamous Epith Cells 0-2 Urine Bacteria None Seen Hyaline Casts 0-2 Urine Opiates Screen Urine Fentanyl Screen Ur Barbiturates Screen Ur Phencyclidine Scrn Ur Amphetamines Screen U Benzodiazepines Scrn Urine Cocaine Screen U Marijuana (THC) Screen Ethyl Alcohol COVID-19 (TASHA) Negative COVID-19 Clin Com See Note 11/29/22 11/29/22 11/30/22 17:55 20:43 05:26 MCV 92.0 MCH 32.4 MCHC 35.3 RDW 13.2 Plt Count 309 MPV 10.3 Immature Gran % (Auto) 0.3 Neut % (Auto) 68.3 Lymph % (Auto) 21.4 [place] % (Auto) 7.7 Eos % (Auto) 1.6 Baso % (Auto) 0.7 Lymph # (Auto) 2.0 [place] # (Auto) 0.7 Eos # (Auto) 0.2 Baso # (Auto) 0.1 Abs Immat Gran (auto) 0.03 Absolute Neuts (auto) 6.2 Absolute Nucleated RBC 0.000 Nucleated RBC % (auto) 0.0 Anion Gap Estim Creat Clear Calc Estimated GFR POC Glucose Random Glucose Lactic Acid Lactic Acid F/U @ 2Hr 1.5 Calcium Magnesium Total Bilirubin AST ALT Alkaline Phosphatase Total Protein Albumin Lipase TSH Urine Color Urine Appearance Urine pH Ur Specific [place] Urine Protein Urine Glucose (UA) Urine Ketones Urine Blood Urine Nitrite Ur Leukocyte Esterase Urine RBC Urine WBC Ur Squamous Epith Cells Urine Bacteria Hyaline Casts Urine Opiates Screen Not Detected Urine Fentanyl Screen Not Detected Ur Barbiturates Screen Not Detected Ur Phencyclidine Scrn Not Detected Ur Amphetamines Screen Not Detected U Benzodiazepines Scrn Not Detected Urine Cocaine Screen Not Detected U Marijuana (THC) Screen Not Detected Ethyl Alcohol COVID-19 (TASHA) COVID-19 Clin Com 11/30/22 11/30/22 11/30/22 05:26 07:05 11:11 MCV MCH MCHC RDW Plt Count MPV Immature Gran % (Auto) Neut % (Auto) Lymph % (Auto) [place] % (Auto) Eos % (Auto) Baso % (Auto) Lymph # (Auto) [place] # (Auto) Eos # (Auto) Baso # (Auto) Abs Immat Gran (auto) Absolute Neuts (auto) Absolute Nucleated RBC Nucleated RBC % (auto) Anion Gap 12 Estim Creat Clear Calc 83.8 Estimated GFR > 60 POC Glucose 220 H 269 H Random Glucose 218 H Lactic Acid Lactic Acid F/U @ 2Hr Calcium 8.0 L D Magnesium Total Bilirubin AST ALT Alkaline Phosphatase Total Protein Albumin Lipase TSH 1.16 Urine Color Urine Appearance Urine pH Ur Specific [place] Urine Protein Urine Glucose (UA) Urine Ketones Urine Blood Urine Nitrite Ur Leukocyte Esterase Urine RBC Urine WBC Ur Squamous Epith Cells Urine Bacteria Hyaline Casts Urine Opiates Screen Urine Fentanyl Screen Ur Barbiturates Screen Ur Phencyclidine Scrn Ur Amphetamines Screen U Benzodiazepines Scrn Urine Cocaine Screen U Marijuana (THC) Screen Ethyl Alcohol COVID-19 (TASHA) COVID-19 Clin Com Microbiology Microbiology Results: Microbiology 11/29/22 20:43 Urine Culture - Preliminary Urine clean catch - Urine dunbar top No growth to date. Assessment and Plan (1) CVA (cerebral vascular accident): Status: Acute Plan This is a 67-year-old male with pertinent history of essential hypertension, CVA, BPH, insulin-dependent diabetes mellitus, PE on Eliquis who was brought to the emergency department evaluation of altered mentation. Acute encephalopathy, unclear etiology CT with prior infarct.? Obtaining MRI to rule out acute CVA Psychiatric consult for capacity Imaging with cystitis and questionable pyelonephritis Initiating IV Rocephin (11/29/22) while in the hospital.? can complete 3 days of abx negative urine culture.? Urothelial mass Follow up outpatient with urologist admitting with chiang cath History of PE on Eliquis Essential hypertension Continue home antihypertensives Insulin-dependent diabetes mellitus Initiating Accu-Cheks with sliding scale insulin Elevated creatinine Unclear baseline.? CAHPIS vs CKD.? Monitor creatinine and urine output with fluid resuscitation.? Avoid nephrotoxins Acute lactic acidosis Due to hypoperfusion.? Not sepsis.? Resolved with fluid resuscitation BPH on Flomax DVT prophylaxis:? On Attending Dr. Mendez Full code DISPO patient was apparently given the wrong urology office for follow up and was supposed to follow up in [place] and ended up in this area. [facility] stay for IV antibiotics and monitoring mentation Time Spent With Patient Time: Total time managing care of this patient today ____ minutes. Quality Stroke Does the patient have a stroke diagnosis?: No VTE Prior VTE?: No VTE Risk Level:: Medical - moderate - high VTE Device Contraindication: Treatment Not Indicated VTE Drug Contraindication: N/A - Med Ordered
--- NOTE | 2022-11-30 15:37 | P.CNPS_ITS ---
History of Present Illness Date of Service: 11/30/2022 Chief Complaint: cystitis, ?mass Reason for Consult: Capacity Requesting physician: Connie Luevano Sources of Information: patient interviewed and chart reviewed HPI Narrative: 67 yo male, found confused and wandering on [address] on 11/29/22 with CHAPIS, UTI and AMS. Capacity eval requested by team. Met with pt who is waiting for d iagnostics, stating, they think I have a cancer in my bladder . Pt reports he lives in [place] with his brother. He was recently in pt at [facility] and was given a urology follow up upon discharge. He states [facility] made the appt with [facility] and his urologist is usually closer to [place]. He accepted the appt and ended up in this area, disoriented. Reports history of a brain problem years ago, where I needed to learn to talk again, I still forget some words, often when I am nervous. Currently pt does report anxiety as he is talking with the team about his history of cluastrophobic responses to MRI scans and his inability to tolerate them. He is wanting to comply with care, but states he will panic if he is placed in the machine. Team assures him that he has been given Lorazepam to assist in sx mgt-pt states it will not be effective, these sx have occurred before. Describes his hope that cathedar will be discontinued, he will have a cystoscopy and receive good news that there are no issues. Reports he is in process with team of signing an HCP, making his brother primary agent. Medically, he reports a history of IDDM, CVA, Prostate Issues , HTN and the current urinary and bladder problems Meds, he reports are for all of the above problems, I just cannot tell you the names because they are doctor names, not names regular people remember . Pt reports he plans to follow medical treatment recommendations, (except for MRI- citing panic and claustrophobia) to take care of this if there is a problem. He states if there was an open MRI machine available he would agree, however the last time he had an MRI it was too frightening. Medical Evaluation Reviewed: Yes Review of Systems Constitutional: Reports no additional constitutional complaints Eyes: Reports no additional eye complaints Reports system reviewed and no additional complaints, except as documented Cardiovascular: Reports no additional cardiovascular complaints Respiratory: Reports no additional respiratory complaints Gastrointestinal: Reports no additional gastrointestinal complaints Genitourinary: Reports difficulty urinating (cath in place), Reports urinary frequency and Reports urinary urgency Musculoskeletal: Reports no additional musculoskeletal complaints Skin/Breast: Reports system reviewed and no additional complaints, except as docu Reports system reviewed and no additional complaints, except as documented, Reports Abnormal speech present and Reports Sensory deficit (Neuro) Psychiatric: Reports anxiety Endocrine: Reports no additional endocrine complaints Hematologic/Lymphatic: Reports no additional hematologic/lymphatic complaints Allergic/Immunologic: Reports no additional allergic/immunologic complaints [facility] Medical History BPH (benign prostatic hyperplasia) CVA (cerebral vascular accident) Hypertension Insulin dependent type 2 diabetes mellitus, controlled Pulmonary emboli Diagnostics Vital Signs (24Hr): Vital Signs - 24 hr 11/29/22 17:01 11/29/22 20:22 11/29/22 22:42 Temperature 97.3 F 98.4 F 99.0 F Pulse Rate 80 73 82 Respiratory Rate 28 H 18 18 Blood Pressure 169/87 H 175/78 H 159/66 H Pulse Oximetry 100 100 99 Oxygen Delivery Method Room Air Room Air Room Air 11/30/22 02:15 11/30/22 07:07 Temperature 98.4 F 97.7 F Pulse Rate 93 71 Respiratory Rate 18 18 Blood Pressure 152/78 H 138/77 Pulse Oximetry 96 97 Oxygen Delivery Method Room Air Room Air BMI result Body Mass Index 30.7 Labs 11/30/22 05:26 11/30/22 05:26 Labs: Laboratory Results - last 48 hr 11/29/22 11/29/22 11/29/22 17:04 17:25 17:25 WBC 10.8 RBC 4.59 L Hgb 14.2 Hct 42.0 MCV 91.5 MCH 30.9 MCHC 33.8 RDW 13.2 Plt Count 364 MPV 9.6 Immature Gran % (Auto) 0.4 Neut % (Auto) 70.7 Lymph % (Auto) 20.8 Wolfe % (Auto) 6.8 Eos % (Auto) 0.7 Baso % (Auto) 0.6 Lymph # (Auto) 2.3 Wolfe # (Auto) 0.7 Eos # (Auto) 0.1 Baso # (Auto) 0.1 Abs Immat Gran (auto) 0.04 H Absolute Neuts (auto) 7.7 Absolute Nucleated RBC 0.000 Nucleated RBC % (auto) 0.0 Sodium 138 Potassium 4.2 Chloride 105 Carbon Dioxide 19 L Anion Gap 18 BUN 18 H Creatinine 1.41 H Estim Creat Clear Calc 64.7 Estimated GFR 50 POC Glucose 129 H Random Glucose 123 H Lactic Acid Lactic Acid F/U @ 2Hr Calcium 9.1 Magnesium 1.6 Total Bilirubin 1.2 H AST 14 ALT 18 Alkaline Phosphatase 112 Total Protein 7.1 Albumin 3.9 Lipase 14 TSH Urine Color Urine Appearance Urine pH Ur Specific [place] Urine Protein Urine Glucose (UA) Urine Ketones Urine Blood Urine Nitrite Ur Leukocyte Esterase Urine RBC Urine WBC Ur Squamous Epith Cells Urine Bacteria Hyaline Casts Urine Opiates Screen Urine Fentanyl Screen Ur Barbiturates Screen Ur Phencyclidine Scrn Ur Amphetamines Screen U Benzodiazepines Scrn Urine Cocaine Screen U Marijuana (THC) Screen Ethyl Alcohol < 10 COVID-19 (TASHA) COVID-19 apta.me Com 11/29/22 11/29/22 11/29/22 17:25 17:25 17:55 WBC RBC Hgb Hct MCV MCH MCHC RDW Plt Count MPV Immature Gran % (Auto) Neut % (Auto) Lymph % (Auto) Wolfe % (Auto) Eos % (Auto) Baso % (Auto) Lymph # (Auto) Wolfe # (Auto) Eos # (Auto) Baso # (Auto) Abs Immat Gran (auto) Absolute Neuts (auto) Absolute Nucleated RBC Nucleated RBC % (auto) Sodium Potassium Chloride Carbon Dioxide Anion Gap BUN Creatinine Estim Creat Clear Calc Estimated GFR POC Glucose Random Glucose Lactic Acid 3.1 H* Lactic Acid F/U @ 2Hr Calcium Magnesium Total Bilirubin AST ALT Alkaline Phosphatase Total Protein Albumin Lipase TSH Urine Color Yellow Urine Appearance Clear Urine pH 7.0 Ur Specific [place] <= 1.005 Urine Protein Negative Urine Glucose (UA) Negative Urine Ketones Negative Urine Blood Small (1+) H Urine Nitrite Negative Ur Leukocyte Esterase Moderate (2+) H Urine RBC 0-2 Urine WBC 6-10 H Ur Squamous Epith Cells 0-2 Urine Bacteria None Seen Hyaline Casts 0-2 Urine Opiates Screen Urine Fentanyl Screen Ur Barbiturates Screen Ur Phencyclidine Scrn Ur Amphetamines Screen U Benzodiazepines Scrn Urine Cocaine Screen U Marijuana (THC) Screen Ethyl Alcohol COVID-19 (TASHA) Negative COVID-19 Clin Com See Note 11/29/22 11/29/22 11/30/22 17:55 20:43 05:26 WBC 9.1 RBC 4.10 L Hgb 13.3 L Hct 37.7 L MCV 92.0 MCH 32.4 MCHC 35.3 RDW 13.2 Plt Count 309 MPV 10.3 Immature Gran % (Auto) 0.3 Neut % (Auto) 68.3 Lymph % (Auto) 21.4 Wolfe % (Auto) 7.7 Eos % (Auto) 1.6 Baso % (Auto) 0.7 Lymph # (Auto) 2.0 Wolfe # (Auto) 0.7 Eos # (Auto) 0.2 Baso # (Auto) 0.1 Abs Immat Gran (auto) 0.03 Absolute Neuts (auto) 6.2 Absolute Nucleated RBC 0.000 Nucleated RBC % (auto) 0.0 Sodium Potassium Chloride Carbon Dioxide Anion Gap BUN Creatinine Estim Creat Clear Calc Estimated GFR POC Glucose Random Glucose Lactic Acid Lactic Acid F/U @ 2Hr 1.5 Calcium Magnesium Total Bilirubin AST ALT Alkaline Phosphatase Total Protein Albumin Lipase TSH Urine Color Urine Appearance Urine pH Ur Specific [place] Urine Protein Urine Glucose (UA) Urine Ketones Urine Blood Urine Nitrite Ur Leukocyte Esterase Urine RBC Urine WBC Ur Squamous Epith Cells Urine Bacteria Hyaline Casts Urine Opiates Screen Not Detected Urine Fentanyl Screen Not Detected Ur Barbiturates Screen Not Detected Ur Phencyclidine Scrn Not Detected Ur Amphetamines Screen Not Detected U Benzodiazepines Scrn Not Detected Urine Cocaine Screen Not Detected U Marijuana (THC) Screen Not Detected Ethyl Alcohol COVID-19 (TASHA) COVID-19 Clin Com 11/30/22 11/30/22 11/30/22 05:26 07:05 11:11 WBC RBC Hgb Hct MCV MCH MCHC RDW Plt Count MPV Immature Gran % (Auto) Neut % (Auto) Lymph % (Auto) Wolfe % (Auto) Eos % (Auto) Baso % (Auto) Lymph # (Auto) Wolfe # (Auto) Eos # (Auto) Baso # (Auto) Abs Immat Gran (auto) Absolute Neuts (auto) Absolute Nucleated RBC Nucleated RBC % (auto) Sodium 139 Potassium 4.4 Chloride 109 H Carbon Dioxide 22 Anion Gap 12 BUN 13 Creatinine 1.06 Estim Creat Clear Calc 83.8 Estimated GFR > 60 POC Glucose 220 H 269 H Random Glucose 218 H Lactic Acid Lactic Acid F/U @ 2Hr Calcium 8.0 L D Magnesium Total Bilirubin AST ALT Alkaline Phosphatase Total Protein Albumin Lipase TSH 1.16 Urine Color Urine Appearance Urine pH Ur Specific [place] Urine Protein Urine Glucose (UA) Urine Ketones Urine Blood Urine Nitrite Ur Leukocyte Esterase Urine RBC Urine WBC Ur Squamous Epith Cells Urine Bacteria Hyaline Casts Urine Opiates Screen Urine Fentanyl Screen Ur Barbiturates Screen Ur Phencyclidine Scrn Ur Amphetamines Screen U Benzodiazepines Scrn Urine Cocaine Screen U Marijuana (THC) Screen Ethyl Alcohol COVID-19 (TASHA) COVID-19 Clin Com Imaging Radiology Impressions: ITS Impressions Head CT 11/29/22 20:42 IMPRESSION: Focal encephalomalacia in the left frontal and insular cortices, most consistent with a prior infarct. A superimposed acute infarct in this region cannot excluded. Consider correlation with MRI of the brain for further assessment if clinically indicated. Abdomen/Pelvis CT 11/29/22 21:02 IMPRESSION: Watkins catheter in the bladder. The bladder is empty. The bladder wall is diffusely thickened. Mild bilateral hydronephrosis and ureteral dilatation down to the bladder. Heterogeneous decreased enhancement in the lower pole the right kidney and question small amount of adjacent fluid. Appearance is questionable for pyelonephritis. Differential would include infarct. Diverticulosis of the colon. Upper normal-size gallbladder. No gallstone seen. Calcifications in the liver and spleen suggestive of old granulomatous disease. Probable small esophageal hernia. Fleischner guidelines were followed. Chest CTA 11/29/22 21:02 IMPRESSION: No evidence of pulmonary embolism. VTE: negative Mental Status Exam Mental Status Exam Patient Appearance: Fatigued Patient Orientation: Person, Place, Time and Situation Level of Consciousness: Alert Patient Behavior: Appropriate, Talkative, Cooperative, Anxious, Fearful, Distractible and Good Eye Contact Affect Description: Fearful, Anxious, Nervous and Apprehensive Patient Cognition Impaired: No Ability to Follow Directions: Good Speech Pattern: Difficulty Finding Words (reports CVA hx several years ago, needing to re-learn language), Spontaneous Speech, Soft-Spoken, Delayed and Long Pauses Memory Description: Episodic Impaired (they brought me over to hospital from [facility] office-that was confusing for me) Hallucinations: None Delusions: Not Present Thought Process: Slowed Thinking Thought Content: positive for [place], positive for Circumstantial, positive for Slowed Thinking and positive for Suicidal Ideation (denies) Depressive Symptoms: Increased Anxiety, Difficulty Sleeping (last night as he reports he was in the ER and was overstimulated), Increased Fatigue and Thoughts of /Suicide (denies) Judgement: Good Medications Medications Current Medications Acetaminophen (Acetaminophen Supp 650 Mg Supp.Rect) 650 mg AL Q6H PRN PRN Reason: Pain, Mild (Pain Scale 1-3) Acetaminophen (Acetaminophen 325 Mg Tablet) 650 mg PO Q6H PRN PRN Reason: Pain, Mild (Pain Scale 1-3) Amlodipine Besylate (Amlodipine Besylate 5 Mg Tablet) 5 mg PO DAILY SHY; Protoc ol Apixaban (Apixaban 5 Mg Tablet) 5 mg PO BID SHY Atorvastatin Calcium (Atorvastatin Calcium 80 Mg Tablet) 80 mg PO BEDTIME SHY Glucose (Glucose Gel 15 Gm Gel..Gram.) 15 gm PO Q15M PRN; Protocol PRN Reason: per Hypoglycemia Standing Ord. Dextrose (D10) 250 mls @ 750 mls/hr IV Q15M PRN; Protocol PRN Reason: per Hypoglycemia Standing Ord. Ceftriaxone Sodium 1 gm/ (Sodium Chloride) 50 mls @ 100 mls/hr IV Q24H SHY Insulin Glargine (Insulin Glargine,Hum.Rec.Anlog 100 Unit/Ml 10 Ml Vial) 20 unit SUBCUT BEDTIME SHY Insulin Human Lispro (Insulin Lispro 100 Unit/Ml 3 Ml Vial) 0 unit SUBCUT QIDACHS [facility]; Protocol Last Admin: 11/30/22 12:22 Dose: 6 unit Melatonin (Melatonin 3 Mg Tablet) 6 mg PO BEDTIME PRN PRN Reason: Insomnia Metoprolol Succinate (Metoprolol Succinate Er 100 Mg Tab.Er.24h) 100 mg PO DAILY [facility]; Protocol Ondansetron HCl (Ondansetron Hcl 4 Mg/2 Ml Vial) 4 mg IVPUSH Q8H PRN PRN Reason: Nausea and Vomiting Sodium Chloride (0.9 % Sodium Chloride Flush 3 Ml Syringe) 3 ml IVFLUSH QSHIFT [facility] Last Admin: 11/30/22 08:15 Dose: 3 ml Spironolactone (Spironolactone 25 Mg Tablet) 25 mg PO DAILY [facility]; Protocol Tamsulosin HCl (Tamsulosin Hcl 0.4 Mg Capsule) 0.4 mg PO DAILY [facility] Allergies Allergies Allergy/AdvReac Type Severity Reaction Status Date / Time Unable to Assess Allergy Unverified 11/29/22 16:53 Assessment & Plan Assessment & Plan (1) Altered mental status: Status: Acute Code(s): R41.82 - Altered mental status, unspecified (2) CHAPIS (acute kidney injury): Status: Acute Code(s): N17.9 - Acute kidney failure, unspecified (3) Acidosis, lactic: Status: Acute Code(s): E87.20 - Acidosis, unspecified (4) BPH (benign prostatic hyperplasia): Status: Acute Code(s): N40.0 - Benign prostatic hyperplasia without lower urinary tract symptoms Plan 67 yo male, capacity eval requested, pt found confused after urology appt 11/29/22 at [facility] [place] [place]. Today, pt is alert, oriented to person, place, day, date, year, situation. He initially believes it to be September, then self corrects to November. Pt able to verbalize his understanding of current issues. He is currently having diagnostics and is discussing his history of panic and claustrophobic response to MRI. He is wanting to cooperate with treatment and get an answer to what is wrong currently. He believes the team is on the right track in diagnostics and is asking about other options to avoid a panic, claustrophobic response. He understands he has been medicated to decrease anxiety and states, maybe if they just would let me see the machine I can make a better decision as to if I can do it. Pt is able to reason with this issue and is able to express his choices. Capacity is intact at this time. Total time managing care of this patient today ____ minutes. Patient educated on: therapeutic strategies Informed Consent: understands
[2022-11-30 16:04] VITALS: BP 157/70; PULSE 66; RESP 18; TEMP 36.8; O2SAT 99
[2022-11-30 16:44] LABS: Glucose, Whole Blood 180 mg/dL (60-115)
[2022-11-30] MEDS: cefTRIAXone sodium 1 GM in 0.9 % Sodium Chloride 50 ML IV (17:30)
[2022-11-30 17:53] LABS: CDiff Gene PCR NEGATIVE (Negative)
[2022-11-30 19:38] VITALS: BP 145/77; PULSE 73; RESP 16; TEMP 36.4; O2SAT 98
[2022-11-30 19:53] LABS: Glucose, Whole Blood 248 mg/dL (60-115)
[2022-11-30] MEDS: Atorvastatin Calcium 80 MG TABLET PO (21:12)
[2022-11-30] MEDS: Apixaban 5 MG TABLET PO (21:12)
[2022-11-30] MEDS: Insulin Glargine,Hum.rec.anlog 100 UNIT/ML 10 ML VIAL 20 UNIT SUBCUT (21:12)
[2022-12-01 03:16] VITALS: BP 138/73; PULSE 66; RESP 16; TEMP 36; O2SAT 97
[2022-12-01 07:10] VITALS: BP 140/82; PULSE 63; RESP 16; TEMP 36.4; O2SAT 97
[2022-12-01 07:44] LABS: Glucose, Whole Blood 160 mg/dL (60-115)
[2022-12-01] MEDS: Insulin Lispro 100 UNIT/ML 3 ML VIAL SUBCUT ×2 (08:51→12:10)
[2022-12-01] MEDS: Apixaban 5 MG TABLET PO (08:52)
[2022-12-01] MEDS: amLODIPine Besylate 5 MG TABLET PO (08:52)
[2022-12-01] MEDS: Tamsulosin HCL 0.4 MG CAPSULE PO (08:52)
[2022-12-01] MEDS: Spironolactone 25 MG TABLET PO (08:52)
[2022-12-01] MEDS: Metoprolol Succinate ER 100 MG TAB.ER.24H PO (08:52)
[2022-12-01] MEDS: 0.9 % Sodium Chloride Flush 3 ML SYRINGE IVFLUSH (08:54)
[2022-12-01 10:12] LABS: Adenovirus F 40/41 Not Detected (Not Detect.); Astrovirus Not Detected (Not Detect.); Campylobacter Not Detected (Not Detect.); Cryptosporidium Not Detected (Not Detect.); Cyclospora cayetanensis Not Detected (Not Detect.); E. coli EAEC Not Detected (Not Detect.); E. coli EPEC Not Detected (Not Detect.); E. coli ETEC Not Detected (Not Detect.); E. coli STEC Not Detected (Not Detect.); Entamoeba histolytica Not Detected (Not Detect.); Giardia lamblia Not Detected (Not Detect.); Norovirus GI/GII Not Detected (Not Detect.); Plesiomonas shigelloides Not Detected (Not Detect.); Rotavirus A Not Detected (Not Detect.); Salmonella Not Detected (Not Detect.); Sapovirus Not Detected (Not Detect.); Shigella sp./EIEC Not Detected (Not Detect.); Vibrio Not Detected (Not Detect.); Vibrio Cholerae Not Detected (Not Detect.); Yersinia enterocolitica Not Detected (Not Detect.)
--- NOTE | 2022-12-01 10:15 | P.DS_ITS ---
DS: Providers Provider Date of Service: 12/01/22 Date of admission: 11/29/22 22:45 Date of discharge: 12/01/22 Primary care physician: Unknown Physician Consults: 11/30/22 13:39 Consult to Psychiatry Routine Consulting Provider: Psych Covering Reason for consultation: capacity Attending physician on discharge: Prieto Mendez Discharging clinician: Mari Brantley DS: Diagnosis Discharge Diagnosis (1) CHAPIS (acute kidney injury): Status: Acute (2) Acidosis, lactic: Status: Acute (3) BPH (benign prostatic hyperplasia): Status: Acute DS: Summary Hospital Course Hospital Course: From H&P on day of admission This is a 67-year-old male with pertinent history of essential hypertension, CVA, BPH, insulin-dependent diabetes mellitus, PE on Eliquis who was brought to the emergency department evaluation of altered mentation.? Patient was brought via ambulance, he was found wandering outside of [address] Patient is a poor historian and does not know why he is here.? History was obtained from chart review and ER provider.? Patient confused and only oriented to person but not to place, time or situation.? Patient had an appointment today with his urologist.? He does not know why he is in the hospital and he does not know what medications he takes.? Does not know his emergency contact information.? As per paperwork, patient was recently discharged from [facility] in [place].? He was discharged with cefpodoxime for UTI and with a diagnosis of PE and urothelial mass.? Unable to obtain review of systems Patient was transported to urology office for follow up, however patient was brought to wrong address. The office was going to set up transportation for him to return home however he appeared shaky and since he was a diabetic he was sent to the emergency department for evaluation. in the emergency department he was noted to have increased elevated renal function and lactic acid. In addition he seemed somewhat confused and therefore the decision was made to admit him to the hospital for further management. He was treated with IV fluid, lactic acidosis resolved, renal function improved. He is alert and oriented. He was evaluated by psych who states that he has capacity to make medical decisions. Acute encephalopathy. seen by Psychiatric consult, deemed to have capacity to make medical decisions. he is alert and oriented and able to relay history of recent hospitalization. no confusion at this time. stable for discharge home Imaging with cystitis and questionable pyelonephritis. Treated with IV Rocephin while in the hospital.? urine culture negative. should follow up with urology for cystoscopy as planned Urothelial mass Follow up outpatient with urologist. admitting with chiang cath Elevated creatinine. unclear baseline. Creatinine improved from 1.41-1.06 Acute lactic acidosis. resolved with IVF. no evidence of sepsis Time Spent with Patient Time attestation: Total time managing care of this patient today ____ minutes. Discharge coordination time: Greater than 30 minutes Quality: Safe Use of Opioids Does Pt have an Active Cancer Diagnosis on the Problem List?: No Quality: Stroke Does the patient have a stroke diagnosis?: No Physical Exam Vital Signs: Vital Signs: Last Vital Signs Temp 97.6 F 12/01/22 07:10 Pulse 63 12/01/22 07:10 Resp 16 12/01/22 07:10 BP 140/82 H 12/01/22 07:10 Pulse Ox 97 12/01/22 07:10 O2 Del Method Room Air 12/01/22 07:10 BMI result Body Mass Index 30.7 Const: General: comfortable, no acute distress, alert and awake Nutritional Appearance: overweight Orientation/consciousness: patient oriented x3 Resp: Effort & Inspection: normal respiratory effort and able to speak in complete sentences Cardio: Rate: regular rate GI: Palpation (GI): Soft to palpation and nontender Neuro: General: patient oriented x3 and CN's II-XI intact bilaterally DS: Data Data Completed and Pending Labs on day of discharge: Laboratory Results - last 24 hr 11/30/22 11/30/22 11/30/22 11:11 15:17 15:17 POC Glucose 269 H Stl C. cayetanensis PCR Not Detected Stool Rotavirus A PCR Not Detected Stl Adenov F 40/41 PCR Not Detected Stool Astrovirus (PCR) Not Detected Stool Campylobacter PCR Not Detected Stool Cryptosporidium PCR Not Detected Stl Sh Tox Pr E STEC PCR Not Detected Stool E coli O157 PCR Not applicable Stl Enterotoxigenic E PCR Not Detected Stool EPEC (PCR) Not Detected Stool EAEC (PCR) Not Detected Stl E. histolytica PCR Not Detected Stool Giardia Lamblia PCR Not Detected Stl P. shigelloides PCR Not Detected Stool Salmonella PCR Not Detected Stool Sapovirus (PCR) Not Detected Stl Shigella/EIEC PCR Not Detected St Y.enterocolitica PCR Not Detected Stool Vibrio (PCR) Not Detected Stl Vibrio cholerae PCR Not Detected Stl Norovirus GI/GII PCR Not Detected C. difficile Tox B Gene NEGATIVE 11/30/22 11/30/22 12/01/22 16:37 19:39 07:09 POC Glucose 180 H 248 H 160 H Stl C. cayetanensis PCR Stool Rotavirus A PCR Stl Adenov F 40/41 PCR Stool Astrovirus (PCR) Stool Campylobacter PCR Stool Cryptosporidium PCR Stl Sh Tox Pr E STEC PCR Stool E coli O157 PCR Stl Enterotoxigenic E PCR Stool EPEC (PCR) Stool EAEC (PCR) Stl E. histolytica PCR Stool Giardia Lamblia PCR Stl P. shigelloides PCR Stool Salmonella PCR Stool Sapovirus (PCR) Stl Shigella/EIEC PCR St Y.enterocolitica PCR Stool Vibrio (PCR) Stl Vibrio cholerae PCR Stl Norovirus GI/GII PCR C. difficile Tox B Gene Preliminary micro results at discharge 11/29/22 18:34 Blood Culture - Preliminary Blood - Venous No growth after 24 hours. 11/29/22 17:25 Blood Culture - Preliminary Blood - Venous No growth after [address] scan - abdomen: Radiologist's impression: ITS Impressions Head CT 11/29/22 20:42 IMPRESSION: Focal encephalomalacia in the left frontal and insular cortices, most consistent with a prior infarct. A superimposed acute infarct in this region cannot excluded. Consider correlation with MRI of the brain for further assessment if clinically indicated. Abdomen/Pelvis CT 11/29/22 21:02 IMPRESSION: Chiang catheter in the bladder. The bladder is empty. The bladder wall is diffusely thickened. Mild bilateral hydronephrosis and ureteral dilatation down to the bladder. Heterogeneous decreased enhancement in the lower pole the right kidney and question small amount of adjacent fluid. Appearance is questionable for pyelonephritis. Differential would include infarct. Diverticulosis of the colon. Upper normal-size gallbladder. No gallstone seen. Calcifications in the liver and spleen suggestive of old granulomatous disease. Probable small esophageal hernia. Fleischner guidelines were followed. Chest CTA 11/29/22 21:02 IMPRESSION: No evidence of pulmonary embolism. VTE: negative Discharge Plan Discharge Anticipated Discharge Date/Time: 12/01/22 00:46 Patient Disposition: Home, Self-Care Discharge Diagnosis: CHAPIS Referrals: Dr Gil [Other] - 1 Week (Urology appointment for catheter removal Tuesday, December 06, 2022 10:30 am) Physician,Javi Reeves [Primary Care Provider] - 1 Week Discharge Medications: Continued atorvastatin 80 mg tablet 80 mg PO BEDTIME metoprolol succinate 100 mg tablet extended release 24 hr 100 mg PO DAILY amlodipine 5 mg tablet 5 mg PO DAILY spironolactone 25 mg tablet 25 mg PO DAILY tamsulosin 0.4 mg capsule 0.4 mg PO DAILY insulin glargine [Lantus Solostar U-100 Insulin] 100 unit/mL (3 mL) insulin pen 20 unit subcut BEDTIME Eliquis 5 mg tablet 5 mg PO BID Discharge Orders: Discharge Order (Routine); Ordered 12/01/22 Ordered By: Mari Brantley Activity on Discharge: As tolerated Stand Alone Forms: Patient Portal Discharge page Care Plan Goals: see below Health Concerns: recent admission at [facility] - you will need to call to schedule follow up appointment with urology for planned cystoscopy and evaluation for ongoing need for chiang Plan of Treatment: call to schedule follow up appointment with urologist call to schedule follow up appointment with primary care provider Assessment: see discharge summary
--- NOTE | 2022-12-01 11:28 | MHC.CM.PN ---
Addendum entered by Lorrie Hyman 12/01/22 12:46: [facility] with transport pt home. supervisor type disk quality control is scheduled for 3:55pm. An appointment was scheduled for the Urologist. TuesdayDecember 06 10:30 am. Transport has been booked with [facility]. They will pick pt up at his home at 9:45am. Original Note: Male 67 Patient will discharge today to home. [facility] is in the process of setting up transportation. Waiting to hear if they will accept the call. [facility] has been notified that they may be needed to assist with transport to [place] later today.
[2022-12-01 11:42] LABS: Glucose, Whole Blood 232 mg/dL (60-115)
== END 2022-12-01 16:01 | disposition home or self-care (01) | DRG 71 ==
LOC: HO.ED 22:16 → HO.EDOVER 22:51 → HO.S3 11-30 00:25
PROVIDERS: Emergency Medicine Emergency Medical Services; Nurse Practitioner Acute Care; Physician Assistant; Admitting Provider Student in an Organized Health Care Education/Training Program; Emergency Provider Emergency Medicine; PCP Internal Medicine; Visit Provider Physician Assistant Medical
DX: G93.40 Encephalopathy, unspecified (principal); E87.21 Acute metabolic acidosis; N13.30 Unspecified hydronephrosis; N32.9 Bladder disorder, unspecified; E11.9 Type 2 diabetes mellitus without complications; N40.0 Benign prostatic hyperplasia without lower urinary tract symptoms; F41.9 Anxiety disorder, unspecified; Z86.73 Personal history of transient ischemic attack (TIA), and cerebral infarction without residual deficits; Z79.4 Long term (current) use of insulin; Z79.01 Long term (current) use of anticoagulants; Z79.899 Other long term (current) drug therapy
CPT/HCPCS: 36415; 70450; 71275; 74177; 80048; 80053; 80307; 81001; 82077; 82947; 83605; 83690; 83735; 84443; 85025; 87040; 87086; 87493; 87507; 87635; 99285; J0696; Q9967